=== PATIENT | female | born 2000 | race Caucasian/White ===

== ENCOUNTER 2023-04-30 08:39 | Emergency (ER) | payer MEDICAID, SELFPAY ==
[2023-04-30 08:43] VITALS: BP 112/67; PULSE 80; RESP 17; TEMP 36.8; O2SAT 100; BMI 25.0
[2023-04-30 09:15] VITALS: BP 120/59; PULSE 71; RESP 18; O2SAT 100
--- NOTE | 2023-04-30 09:40 | US_ITS ---
WS: [id number] ULTRASOUND OB LIMITED TECHNIQUE: Limited ultrasound examination of the fetus. LMP January 14, 2023 CLINICAL INFORMATION: RLQ pain pt reports 16 weeks gestation COMPARISON: None. FINDINGS: Closed cervix measures 3.4 cm Single interuterine gestation. Placental location is anterior. Placenta grade: 0. heart rate 153 BPM. Anatomy: BDP: 2.8 cm = 15w1d HC: 10.8 cm = 15w1d AC: 8.9 cm = 15w1d FEMUR LENGTH: 1.8 cm = 15w1d Estimated weight: 117 g; 0 lbs. 4 oz. EGA by ultrasound: 15w1d THANIA by ultrasound: 10/21/2023 RIGHT lower quadrant appears normal. US/US OB limited [id number] IMPRESSION: 1. Single intrauterine gestation with cardiac activity. 2. Visualized RIGHT lower quadrant appears normal. EGA by ultrasound: 15w1d THANIA by ultrasound: 10/21/2023
[2023-04-30 09:59] VITALS: BP 120/59; RESP 18; O2SAT 100
--- NOTE | 2023-04-30 10:09 | ED_ITS ---
HPI - General: Chief complaint: OB/Uterine Contractions Stated complaint: 16 weeks , LRQ abd pain Time Seen by Provider: 04/30/23 08:42 History of Present Illness: Patient is in today for right lower abdominal pain. Patient states that she started having right lower quadrant abdominal pain this morning that was not terrible, but after she peed the pain became severe and hard to walk with. Patient denies that her urine was discolored. She denies hematuria. She denies burning with urination. She denies any fever, chills. She states that she is approximately 16 weeks based on her last menstrual period. She states that she did have an ultrasound approximately 2 weeks ago because she was admitted into the hospital in [place] for abdominal pain and vomiting blood. She reports that she does have 2 uterus is in the baby is positioned in the left side uterus. Patient states that her first OB appointment is this coming next week. Associated symptoms: Reports abdominal pain and nausea; Deny dysuria or vomiting Review of Systems Const: Denies: fever(s), chills or body aches Card: Denies: chest pain or palpitations Resp: Denies: dyspnea, productive cough or non-productive cough GI: Reports: abdominal pain and nausea; Denies: vomiting, diarrhea or constipation : Denies: flank pain, difficulty voiding, dysuria, urinary frequency, urinary urgency or urinary hesitancy Physical Exam Const: COMMON NORMALS: no acute distress, patient oriented x3, healthy appearing, alert and well nourished Neck/C-Spine: COMMON NORMALS: no JVD Resp: COMMON NORMALS: normal respiratory effort, No use of accessory muscles and clear to auscultation bilaterally AUSCULTATION: clear to auscultation bilaterally Cardio: COMMON NORMALS: no JVD, regular rate, regular rhythm, S1 normal heart sound present and S2 normal heart sound present RATE: regular rate RHYTHM: regular rhythm HEART SOUNDS: S1 normal heart sound present and S2 normal heart sound present GI: COMMON NORMALS: Soft to palpation INSPECTION: Yes normal to inspection AUSCULTATION: Yes normoactive bowel sounds PALPATION: Yes Soft to palpation and Yes Tenderness to palpation present (GI) (Patient has some generalized lower abdominal tenderness) Neuro: COMMON NORMALS: patient oriented x3 SENSORIUM/ORIENTATION: Yes alert Course Vital Signs: Vital signs: Vital Signs Temperature 98.2 F 04/30/23 08:43 Pulse Rate 71 04/30/23 09:15 Respiratory Rate 18 04/30/23 09:59 Blood Pressure 120/59 04/30/23 09:59 Pulse Oximetry 100 04/30/23 09:59 Oxygen Delivery Me thod Room Air 04/30/23 09:15 MDM - OB/Uterine Contractions Medical Decision Making Patient is in today for right lower quadrant abdominal pain and states she is approximately 16 weeks gestation. She is a 4 for para 1. She reports her upcoming OB first appointment is next . Differentials include ectopic , threatened , appendicitis, pelvic pain, round ligament pain Patient is in no acute distress and afebrile. Labs-White blood cell count is normal electrolytes are normal. UA dip shows bacteria, trace mucus, positive red blood cells. Preliminary read?pelvic ultrasound shows gestation 15 weeks 1 day fetus. Bicornuate uterus. I will discharge patient home treat to cover urinary tract infection. Encourage patient to stay well-hydrated. Keep upcoming appointment with RESTAURANT EXPEDITOR. Return to the ER as needed for any new or worsening symptoms Lab Data 04/30/23 10:12 04/30/23 10:12 Radiology Impressions Obstetrics Ultrasound 04/30/23 09:40 IMPRESSION: 1. Single intrauterine gestation with cardiac activity. 2. Visualized RIGHT lower quadrant appears normal. EGA by ultrasound: 15w1d THANIA by ultrasound: 10/21/2023 Laboratory Results WBC 7.0 10^3/uL (4.0-10.0) 04/30/23 10:12 RBC 4.13 10^6/uL (4.1-5.3) 04/30/23 10:12 Hgb 11.5 g/dL (11.5-15.3) 04/30/23 10:12 Hct 36.0 % (37.0-47.0) L 04/30/23 10:12 MCV 87.2 fl (81-99) 04/30/23 10:12 MCH 27.8 pg (28.0-34.0) L 04/30/23 10:12 MCHC 31.9 g/dL (30.0-36.0) 04/30/23 10:12 RDW 13.5 % (12.1-15.1) 04/30/23 10:12 Plt Count 257 10^3/cmm (130-400) 04/30/23 10:12 MPV 10.2 fL (7.4-10.4) 04/30/23 10:12 Neut % (Auto) 68.7 % 04/30/23 10:12 Lymph % (Auto) 26.8 % 04/30/23 10:12 [place] % (Auto) 2.9 % 04/30/23 10:12 Eos % (Auto) 1.0 % 04/30/23 10:12 Baso % (Auto) 0.3 % 04/30/23 10:12 Neut # (Auto) 4.81 10^3/uL (1.8-7.7) 04/30/23 10:12 Lymph # (Auto) 1.9 10^3/uL (0.8-4.8) 04/30/23 10:12 [place] # (Auto) 0.2 10^3/uL (0.2-0.9) 04/30/23 10:12 Eos # (Auto) 0.1 10^3/uL (0.0-0.8) 04/30/23 10:12 Baso # (Auto) 0.0 10^3/uL (0.0-0.1) 04/30/23 10:12 Nucleated RBC % (auto) 0 % 04/30/23 10:12 Nucleated RBCs # 0.0 /100WBC 04/30/23 10:12 Sodium 137 mmol/L (136-145) 04/30/23 10:12 Potassium 4.1 mmol/L (3.5-5.1) 04/30/23 10:12 Chloride 105 mmol/L (98-107) 04/30/23 10:12 Carbon Dioxide 22 mmol/L (22-29) 04/30/23 10:12 Anion Gap 14.1 (5-19) 04/30/23 10:12 BUN 6 mg/dL (6-20) 04/30/23 10:12 Creatinine 0.5 mg/dL (0.5-0.9) 04/30/23 10:12 GFR Calculation 151.6 mL/min (90-130) H 04/30/23 10:12 Glucose 81 mg/dL (65-115) 04/30/23 10:12 Calculated Osmolality 281 mOsm/kg (285-295) L 07/06/23 10:12 Calcium 8.8 mg/dL (8.5-10.5) 04/30/23 10:12 Total Bilirubin 0.2 mg/dL (0.15-1.2) 04/30/23 10:12 AST 10 U/L (0-32) 04/30/23 10:12 ALT 8 U/L (0-33) 04/30/23 10:12 Alkaline Phosphatase 67 U/L (35-105) 04/30/23 10:12 Total Protein 7.1 g/dL (6.6-8.7) 04/30/23 10:12 Albumin 3.7 g/dL (3.5-5.2) 04/30/23 10:12 Globulin 3.4 g/dL (1.3-4.6) 04/30/23 10:12 Urine Color Yellow (Yellow) 04/30/23 09:42 Urine Appearance Cloudy (CLEAR) A 04/30/23 09:42 Urine pH 7 (5-7) 04/30/23 09:42 Ur Specific [place] 1.015 (1.005-1.030) 04/30/23 09:42 Urine Protein Neg (Negative) 04/30/23 09:42 Urine Glucose (UA) Norm (Normal) 04/30/23 09:42 Urine Ketones Negative (Negative) 04/30/23 09:42 Urine Blood Neg (Negative) 04/30/23 09:42 Urine Nitrate Negative (Negative) 04/30/23 09:42 Urine Bilirubin Neg (Negative) 04/30/23 09:42 Urine Urobilinogen Norm mg/dL (Negative) 04/30/23 09:42 Ur Leukocyte Esterase Negative (Negative) 04/30/23 09:42 Urine RBC 0-4 /hpf (0-2) H 04/30/23 09:42 Urine WBC 0-4 /hpf (0-5) H 04/30/23 09:42 Ur Squamous Epith Cells 25-40 /hpf (0-5) H 04/30/23 09:42 Amorphous Sediment 1+ /hpf 04/30/23 09:42 Urine Bacteria 1+ /hpf (NONE) H 04/30/23 09:42 Urine Mucus Trace /hpf 04/30/23 09:42 Discharge Plan Discharge Patient Disposition: Home Clinical Impression: Abdominal pain, UTI (urinary tract infection) in in second trimester Condition: Stable Prescriptions: New nitrofurantoin macrocrystal 100 mg capsule 100 mg PO BID 5 Days Qty: 10 0RF Rx Instructions: must administer with a meal/food Discharge Orders: Discharge ED (Routine); Ordered 04/30/23 Ordered By: Bekah Harris Discharge Diet: Usual diet Discharge Activity: Increase activity as tolerated Patient Instructions: Urinary Tract Infection in (ED) Activity Restrictions/Additional Instructions: Your lab work was essentially unremarkable with no indication of major systemic infection. You did have some bacteria and blood in your urine which we will treat with an antibiotic to cover a urinary tract infection. While an appendicitis cannot be 100% ruled out without a CT scan it is of less likely cause of your pain given that you have no fever, your white blood cell count was normal. Make sure that you are staying well-hydrated at home and take the antibiotic as prescribed. Keep your follow-up appointment with your RESTAURANT EXPEDITOR next week. Return to the emergency department for any new or worsening symptoms. Coding Level of Care Code ED Section Forest Fire Warden for Jakob Wilkinson
[2023-04-30 10:18] LABS: Basophils % 0.3 %; Eosinophils # 0.1 10^3/uL (0.0-0.8); Hemoglobin 11.5 g/dL (11.5-15.3); Lymphocytes # 1.9 10^3/uL (0.8-4.8); Lymphocytes % 26.8 %; Mean Corpuscular HGB Conc 31.9 g/dL (30.0-36.0); Mean Corpuscular Hemoglobin 27.8 pg (28.0-34.0); Mean Corpuscular Volume 87.2 fl (81-99); Mean Platelet Volume 10.2 fL (7.4-10.4); Monocytes # 0.2 10^3/uL (0.2-0.9); Monocytes % 2.9 %; Neutrophils # 4.81 10^3/uL (1.8-7.7); Neutrophils % 68.7 %; Nucleated Red Blood Cells % 0 %; Platelet Count 257 10^3/cmm (130-400); Red Blood Count 4.13 10^6/uL (4.1-5.3); Red Cell Distribution Width 13.5 % (12.1-15.1)
[2023-04-30 10:30] LABS: Add Urine Microscopic? YES; Bilirubin Urine Neg (Negative); Blood Urine Neg (Negative); Glucose Urine UA Norm (Normal); Ketones Urine Negative (Negative); Leukocyte Esterase Urine Negative (Negative); Nitrate Urine Negative (Negative); Protein Urine Neg (Negative); Specific Gravity, Urine 1.015 (1.005-1.030); Urine Appearance Cloudy (CLEAR); Urine Color Yellow (Yellow); Urobilinogen Urine Norm (Negative); pH Urine 7 (5-7)
[2023-04-30 10:41] LABS: RBC Urine 0-4 /hpf (0-2); WBC Urine 0-4 /hpf (0-5)
[2023-04-30 10:42] LABS: Add Urine Culture? No; Amorphous Sediment Urine 1+ /hpf; Bacteria Urine 1+ /hpf; Mucus Urine TRACE /hpf; Squamous Epithelial Cell Urine 25-40 /hpf (0-5)
[2023-04-30 10:43] LABS: Alanine Aminotransferase 8 U/L (0-33); Albumin Level 3.7 g/dL (3.5-5.2); Alkaline Phosphatase 67 U/L (35-105); Anion Gap 14.1 (5-19); Aspartate Amino Transferase 10 U/L (0-32); Blood Urea Nitrogen 6 mg/dL (6-20); Calcium 8.8 mg/dL (8.5-10.5); Carbon Dioxide 22 mmol/L (22-29); Chloride 105 mmol/L (98-107); Globulin 3.4 g/dL (1.3-4.6); Glomerular Filtration Rate 151.6 mL/min (90-130); Glucose 81 mg/dL (65-115); Osmolality Calculated 281 mOsm/kg (285-295); Potassium 4.1 mmol/L (3.5-5.1); Sodium 137 mmol/L (136-145); Total Bilirubin 0.2 mg/dL (0.15-1.2); Total Protein 7.1 g/dL (6.6-8.7)
== END 2023-04-30 11:29 | disposition home or self-care (01) ==
PROVIDERS: Emergency Provider Nurse Practitioner Family
DX: O23.42 Unspecified infection of urinary tract in pregnancy, second trimester (principal); N39.0 Urinary tract infection, site not specified; Z3A.16 16 weeks gestation of pregnancy
CPT/HCPCS: 76815; 80053; 81001; 85025; 99284

== ENCOUNTER → 2023-05-05 15:00 | Outpatient (BNVA) | payer MEDICAID, SELFPAY | PROVIDERS: Visit Provider Obstetrics & Gynecology | DX: Z34.90 Encounter for supervision of normal pregnancy, unspecified, unspecified trimester (principal); Z3A.00 Weeks of gestation of pregnancy not specified | CPT/HCPCS: 80307; 84315; 85027; 86592; 86762; 86803; 86850; 86900; 87086; 87340; 87806 ==

== ENCOUNTER → 2023-05-06 02:15 | Outpatient (BNVA) | payer MEDICAID, SELFPAY | PROVIDERS: Visit Provider Obstetrics & Gynecology | DX: Z34.90 Encounter for supervision of normal pregnancy, unspecified, unspecified trimester (principal); Z3A.00 Weeks of gestation of pregnancy not specified | CPT/HCPCS: 87522 ==

== ENCOUNTER → 2023-06-02 10:16 | Outpatient (BNVA) | payer MEDICAID, SELFPAY | PROVIDERS: Visit Provider Obstetrics & Gynecology | DX: Z36.87 Encounter for antenatal screening for uncertain dates (principal) | CPT/HCPCS: 76805 ==

== ENCOUNTER → 2023-06-03 10:42 | Outpatient (BNVA) | payer MEDICAID, SELFPAY | PROVIDERS: Visit Provider Obstetrics & Gynecology | DX: Z34.80 Encounter for supervision of other normal pregnancy, unspecified trimester (principal); Z98.891 History of uterine scar from previous surgery | CPT/HCPCS: 81000 ==

== ENCOUNTER → 2023-06-27 13:41 | Outpatient (BNVA) | payer MEDICAID, SELFPAY | PROVIDERS: Visit Provider Registered Nurse Neonatal Intensive Care | DX: R05.9 Cough, unspecified (principal); J40 Bronchitis, not specified as acute or chronic | CPT/HCPCS: 87426 ==

== ENCOUNTER → 2023-06-30 10:35 | Outpatient (BNVA) | payer MEDICAID, SELFPAY | PROVIDERS: Visit Provider Nurse Practitioner Women's Health | DX: Z34.80 Encounter for supervision of other normal pregnancy, unspecified trimester (principal); A53.0 Latent syphilis, unspecified as early or late | CPT/HCPCS: 81000 ==

== ENCOUNTER → 2023-07-01 13:38 | Outpatient (BNVA) | payer MEDICAID, SELFPAY | PROVIDERS: Visit Provider Nurse Practitioner Women's Health | DX: A53.0 Latent syphilis, unspecified as early or late (principal); Z34.80 Encounter for supervision of other normal pregnancy, unspecified trimester | CPT/HCPCS: 84443; 86592; 86780 ==

== ENCOUNTER 2023-07-08 15:02 | Outpatient (CLI) | payer MEDICAID, SELFPAY ==
[2023-07-08 15:02] VITALS: BMI 32.9
== END 2023-07-08 15:44 | disposition home or self-care (01) ==
LOC: OPOB 15:08 → OBGYN 15:08
PROVIDERS: Visit Provider Obstetrics & Gynecology
DX: O26.899 Other specified pregnancy related conditions, unspecified trimester (principal); Z3A.00 Weeks of gestation of pregnancy not specified
CPT/HCPCS: 96372; 99211; J0702

== ENCOUNTER 2023-07-09 15:36 | Outpatient (CLI) | payer MEDICAID, SELFPAY ==
[2023-07-09] MEDS: penicillin g (L-A) 1,200,000 unit/2 mL Syr 2400000 UNIT IM (16:27)
[2023-07-09 16:36] VITALS: BMI 32.9
== END 2023-07-09 16:30 | disposition home or self-care (01) ==
LOC: OPOB 15:37 → OBGYN 15:38
PROVIDERS: Visit Provider Obstetrics & Gynecology
DX: O26.899 Other specified pregnancy related conditions, unspecified trimester (principal); Z3A.00 Weeks of gestation of pregnancy not specified
CPT/HCPCS: 96372; J0561

== ENCOUNTER → 2023-07-14 16:20 | Outpatient (BNVA) | payer MEDICAID, SELFPAY | PROVIDERS: Visit Provider Obstetrics & Gynecology | DX: Z20.2 Contact with and (suspected) exposure to infections with a predominantly sexual mode of transmission (principal); Z34.80 Encounter for supervision of other normal pregnancy, unspecified trimester | CPT/HCPCS: 81000; 87491; 87591 ==

== ENCOUNTER → 2023-07-30 15:45 | Outpatient (BNVA) | payer MEDICAID, SELFPAY | PROVIDERS: Visit Provider Obstetrics & Gynecology | DX: Z34.80 Encounter for supervision of other normal pregnancy, unspecified trimester (principal) | CPT/HCPCS: 81000; 82950; 85025 ==

== ENCOUNTER → 2023-08-12 08:51 | Outpatient (BNVA) | payer MEDICAID, SELFPAY | PROVIDERS: Visit Provider Obstetrics & Gynecology | DX: Z34.80 Encounter for supervision of other normal pregnancy, unspecified trimester (principal) | CPT/HCPCS: 81000 ==

== ENCOUNTER → 2023-08-25 11:50 | Outpatient (BNVA) | payer MEDICAID, SELFPAY | PROVIDERS: Visit Provider Obstetrics & Gynecology | DX: Z34.80 Encounter for supervision of other normal pregnancy, unspecified trimester (principal) | CPT/HCPCS: 81000 ==

== ENCOUNTER → 2023-09-09 10:28 | Outpatient (BNVA) | payer MEDICAID, SELFPAY | PROVIDERS: Visit Provider Nurse Practitioner Women's Health | DX: Z34.80 Encounter for supervision of other normal pregnancy, unspecified trimester (principal) | CPT/HCPCS: 81000; 86592 ==

== ENCOUNTER → 2023-09-23 12:42 | Outpatient (BNVA) | payer MEDICAID, SELFPAY | PROVIDERS: Visit Provider Obstetrics & Gynecology | DX: Z34.80 Encounter for supervision of other normal pregnancy, unspecified trimester (principal) | CPT/HCPCS: 81000; 87081 ==

== ENCOUNTER → 2023-09-30 10:25 | Outpatient (BNVA) | payer MEDICAID, SELFPAY | PROVIDERS: Visit Provider Obstetrics & Gynecology | DX: Z34.80 Encounter for supervision of other normal pregnancy, unspecified trimester (principal) | CPT/HCPCS: 81000 ==

== ENCOUNTER 2023-10-01 15:05 | Outpatient (CLI) | payer MEDICAID, SELFPAY ==
[2023-10-01 15:05] VITALS: BMI 36.6
[2023-10-01 15:52] VITALS: BP 122/73; PULSE 90
[2023-10-01 16:12] VITALS: BP 126/63; PULSE 86
[2023-10-01 16:32] VITALS: BP 123/64; PULSE 94
[2023-10-01 16:41] LABS: Glucose Urine UA Norm (Normal); Ketones Urine 2+ (Negative); Protein Urine Neg (Negative); Specific Gravity, Urine 1.015 (1.005-1.030); Urine Appearance Hazy (CLEAR); Urine Color Yellow (Yellow); pH Urine 6 (5-7)
[2023-10-01 16:42] LABS: Bilirubin Urine Neg (Negative); Blood Urine Neg (Negative); Leukocyte Esterase Urine Trace (Negative); Nitrate Urine Negative (Negative); Urobilinogen Urine Norm (Negative)
[2023-10-01 16:44] LABS: Add Urine Culture? No; Bacteria Urine TRACE /hpf; Mucus Urine 2+ /hpf; RBC Urine 0-4 /hpf (0-2); WBC Urine 0-4 /hpf (0-5)
[2023-10-01 16:52] VITALS: BP 129/60; PULSE 99
[2023-10-01 17:06] VITALS: BP 129/60; PULSE 99; RESP 16; TEMP 36.9
== END 2023-10-01 17:00 | disposition home or self-care (01) ==
LOC: OPOB 15:19 → OBGYN 15:20
PROVIDERS: Absent Provider Obstetrics & Gynecology; Visit Provider Obstetrics & Gynecology
DX: O26.899 Other specified pregnancy related conditions, unspecified trimester (principal); Z3A.00 Weeks of gestation of pregnancy not specified; R10.9 Unspecified abdominal pain
CPT/HCPCS: 59025; 81001; 99211

== ENCOUNTER → 2023-10-07 08:55 | Day surgery (SDC) | payer MEDICAID, SELFPAY ==
--- NOTE | 2023-10-07 09:11 | ANES.PREANE2 ---
Pre-Anesthetic Assessment Height/Weight: Height 1.65 m Operation Date: 10/14/23 12:20 Proposed Procedures p Repeat section 92710,O34.219(Not Applicable) - Alejandro Buchanan MD Familial anesthetic complications: none Social Tobacco and No alcohol Exam alert, oriented x 3, clear to auscultation bilaterally and regular rate & rhythm Airway Mallampati: Class II Dentition: chipped bicornuate uterus Metabolic Morbid Obesity Anesthetic Plan ASA status: 2 Anesthesia: Regional (specify below) (spinal) Risk of > 500 ml blood loss (7ml/kg in children): Yes, adequate IV access and fluids planned Medications/Allergies Home Medications Medication Instructions Recorded Confirmed Last Taken Type ondansetron HCl 4 mg tablet 4 mg PO Q8H PRN nausea and 05/05/23 10/07/23 Unknown Rx vomiting #30 tabs vitamin with calcium 1 tab PO DAILY #30 tabs 05/05/23 10/07/23 Unknown Rx no.72-iron 27 mg-folic acid 1 mg tablet ( Vitamins Plus Low Iron) metoclopramide HCl 10 mg tablet 10 mg PO Q6H PRN nausea and 05/15/23 10/07/23 Unknown Rx (Reglan) vomiting #30 tabs famotidine 40 mg tablet 40 mg PO BID #60 tabs 06/03/23 10/07/23 Unknown Rx albuterol sulfate 90 mcg/actuation 2 puff inhalation Q6H PRN 06/27/23 10/07/23 Unknown Rx aerosol inhaler (Ventolin HFA) shortness of breath or wheezing #8.5 grams azithromycin 250 mg tablet See Rx Instructions PO .COMPLEX #6 06/27/23 10/07/23 Unknown Rx tabs penicillin G benzathine 1,200,000 1.2 mmu (2 mL) IM ONCE #20 mL 07/08/23 10/07/23 Unknown Rx unit/2 mL intramuscular syringe (Bicillin L-A) ondansetron HCl 4 mg tablet 4 mg PO Q8H PRN nausea and 08/25/23 10/07/23 Unknown Rx vomiting #20 tabs Allergies Allergy/AdvReac Type Severity Reaction Status Date / Time diphenhydramine Allergy ADR-Cramping Verified 10/07/23 08:16 [From Benadryl] of the Muscles benodryl Allergy restless Uncoded 10/07/23 08:16 leg PFSH Anesthesia Family History Denies family history of Colon cancer Ovarian cancer Diabetes Heart disease Hyperlipidemia Breast cancer Hypertension Uterine cancer Thyroid disease Stroke Data Anesthesia Cardiac Studies: No Data to Display
--- NOTE | 2023-10-14 10:16 | ANES.PAUD2 ---
Pre-Anesthetic Update Pre-Anesthetic Assessment: Date of Surgery/Procedure: 10/14/23 Proposed Procedure: Operation Date: 10/14/23 12:20 Proposed Procedures p Repeat section 11317,O34.219(Not Applicable) - Alejandro Buchanan MD Any changes to Pre-Anesthetic Assessment?: No Exam: Pre-Anes Outpt Exam: alert, oriented x 3, clear to auscultation bilaterally and regular rate & rhythm Additional Exam Findings (including area of procedure): Repeat C/S, chipped teeth Cardiac Studies: No Data to Display
--- NOTE | 2023-10-14 13:39 | ANE.PACU2 ---
Inpatient post-anesthesia follow up: Airway intact: Yes Vital signs: Temperature Pulse Rate Respiratory Rate Blood Pressure Pulse Oximetry Oxygen Delivery Me thod Oxygen Flow Rate Fraction of Inspir ed Oxygen Hydration adequate: Yes Nausea and vomiting: No Pain level: 2 Mental status: Baseline
== END ==
PROVIDERS: Visit Provider Obstetrics & Gynecology
DX: Z01.818 Encounter for other preprocedural examination (principal)
CPT/HCPCS: 81000

== ENCOUNTER 2023-10-14 09:49 | Inpatient (IN) | payer MEDICAID, SELFPAY ==
[2023-10-01 15:35] VITALS: BP 126/70; PULSE 114; RESP 16; TEMP 36.9
[2023-10-14] VITALS (28 sets, daily range): BP systolic 97–138; BP diastolic 51–80; PULSE 69–92; RESP 15–17; TEMP 36.3–36.8; O2SAT 98–100
[2023-10-14 10:56] LABS: Basophils % 0.3 %; Eosinophils # 0.1 10^3/uL (0.0-0.8); Eosinophils % 0.8 %; Hematocrit 31.2 % (36-47); Lymphocytes # 2.1 10^3/uL (0.8-4.8); Lymphocytes % 21.6 %; Mean Corpuscular HGB Conc 32.7 g/dL (30-55); Mean Corpuscular Hemoglobin 28.3 pg (27-33); Mean Corpuscular Volume 86.4 fl (85-98); Mean Platelet Volume 10.8 fL (7.4-10.4); Monocytes # 0.4 10^3/uL (0.2-0.9); Monocytes % 4.2 %; Neutrophils # 7.13 10^3/uL (1.8-7.7); Neutrophils % 72.7 %; Nucleated Red Blood Cells % 0 %; Platelet Count 275 10^3/cmm (157-399); Red Blood Count 3.61 10^6/uL (3.85-5.65); Red Cell Distribution Width 14.6 % (12.1-15.1); White Blood Count 9.81 10^3/uL (3.29-11.43)
[2023-10-14] MEDS: lactated ringers 1,000 ML 999 ML IV (10:59)
[2023-10-14] MEDS: ceFAZolin 2,000 MG in sodium chloride 0.9% (plus) 50 ML 100 MG IV (11:59)
[2023-10-14] MEDS: famotidine 20 mg/2 mL INJ IVP (12:00)
[2023-10-14] MEDS: metoclopramide 5 mg/mL SDV 2 mL 10 MG IVP (12:00)
[2023-10-14] MEDS: citric acid-sodium citrate 30 mL UDC PO (12:00)
--- NOTE | 2023-10-14 12:03 | PC.NURSE ---
on floor now
[2023-10-14 12:05] LABS: Amphetamines Screen Urine Negative (Negative); Barbiturates Screen Urine Negative (Negative); Benzodiazepines Screen Urine Negative (Negative); Cocaine Screen Urine Negative (Negative); Opiate Screen Urine Negative (Negative); PCP Screen Urine Negative (Negative); THC Screen Urine Positive (Negative)
--- NOTE | 2023-10-14 12:07 | PM.OBGYHP ---
Providers/Chief Complaint Admitting Physician: Alejandro Buchanan MD Primary STAVE BOLT EQUALIZER: Alejandro Buchanan MD Chief Complaint: repeat section HPI STAVE BOLT EQUALIZER History of Present Illness Shad Khan is a 22 year old female at 39 weeks gestation h/o previous admitted for schedule repeat h/o syphilis, dxd on screening labs, treated with two doses of Bicillin Present Details : 4 Para: 1 Labs Rubella: Immune RPR: Unknown GBS: Negative Medications/Allergies Home Medications Medication Instructions Recorded Confirmed Last Taken Type ondansetron HCl 4 mg tablet 4 mg PO Q8H PRN nausea and 05/05/23 10/14/23 Unknown Rx vomiting #30 tabs vitamin with calcium 1 tab PO DAILY #30 tabs 05/05/23 10/14/23 Unknown Rx no.72-iron 27 mg-folic acid 1 mg tablet ( Vitamins Plus Low Iron) metoclopramide HCl 10 mg tablet 10 mg PO Q6H PRN nausea and 05/15/23 10/14/23 Unknown Rx (Reglan) vomiting #30 tabs famotidine 40 mg tablet 40 mg PO BID #60 tabs 06/03/23 10/14/23 Unknown Rx albuterol sulfate 90 mcg/actuation 2 puff inhalation Q6H PRN 06/27/23 10/14/23 Unknown Rx aerosol inhaler (Ventolin HFA) shortness of breath or wheezing #8.5 grams azithromycin 250 mg tablet See Rx Instructions PO .COMPLEX #6 06/27/23 10/14/23 Unknown Rx tabs penicillin G benzathine 1,200,000 1.2 mmu (2 mL) IM ONCE #20 mL 07/08/23 10/14/23 Unknown Rx unit/2 mL intramuscular syringe (Bicillin L-A) ondansetron HCl 4 mg tablet 4 mg PO Q8H PRN nausea and 08/25/23 10/14/23 Unknown Rx vomiting #20 tabs Allergies Allergy/AdvReac Type Severity Reaction Status Date / Time diphenhydramine Allergy ADR-Cramping Verified 10/14/23 08:29 [From Benadryl] of the Muscles benodryl Allergy restless Uncoded 10/14/23 08:29 leg PFSH STAVE BOLT EQUALIZER PFSH: Family History Denies family history of Colon cancer Ovarian cancer Diabetes Heart disease Hyperlipidemia Breast cancer Hypertension Uterine cancer Thyroid disease Stroke History History History 6 Term 1 0 Miscarriages/Ectopic 4 Living Children 1 Care THANIA Calculator Estimated Delivery Date Method Current WG Current Estimate 10/21/23 LMP (Certain) 39w 0d Vitals/I&O/Wt Last Vital Signs Temp 98.4 F 10/01/23 15:35 Pulse 77 10/14/23 10:54 Resp 16 10/01/23 15:35 BP 124/74 10/14/23 10:54 O2 Del Method Room Air 10/14/23 09:50 Weight last 48 hrs Weight 218 lb Physical Exam Const: COMMON NORMALS: no acute distress, patient oriented x3, healthy appearing and alert Resp: COMMON NORMALS: normal respiratory effort and clear to auscultation bilaterally Cardio: COMMON NORMALS: regular rate and regular rhythm GI: COMMON NORMALS: Normal to inspection, nondistended, normoactive bowel sounds present, Soft to palpation and non-tender Data 10/14/23 10:30 Results Labs OB ([facility]): Obstetrics US 04/30/23 Blood Type O Positive 05/05/23 Antibody Screen Negative 05/05/23 Hct 31.2 % (36-47) L 10/14/23 Hgb 10.20 g/dL (11.27-16.99) L 10/14/23 Rho(D) Type Positive 05/05/23 Plt Count 275 10^3/cmm (157-399) 10/14/23 Hep Bs Antigen Non-reactive (Nonreactive) 05/05/23 Hepatitis C Antibody Reactive (Nonreactive) H 05/05/23 Rubella IgG Antibody 74.7 IU/mL (0.0-10.0) H 05/05/23 RPR Reactive (Nonreactive) H 05/05/23 T.pallidum Ab (FTA-ABS) Reactive (NON-REACTIVE) A 07/01/23 HIV 1&2 Ab & HIV 1 Ag Non-reactive (Non-Reactiv) 05/05/23 TSH 0.92 uIU/mL (0.27-4.20) 07/01/23 C.trachomatis RNA (TMA) Not detected (NOT DETECTED) 07/14/23 N.gonorrhoeae RNA (TMA) Not detected (NOT DETECTED) 07/14/23 T. vaginalis Amp RNA Not detected (NOT DETECTED) 07/14/23 Chlamydia/GC Comment See note 07/14/23 Gest Glucose Tolerance 103 mg/dL (70-139) 07/30/23 Urine Opiates Screen Negative ng/mL (Negative) 10/14/23 Ur Barbiturates Screen Negative ng/mL (Negative) 10/14/23 Ur Phencyclidine Scrn Negative ng/mL (Negative) 10/14/23 Ur Amphetamines Screen Negative ng/mL (Negative) 10/14/23 U Benzodiazepines Scrn Negative ng/mL (Negative) 10/14/23 Urine Cocaine Screen Negative ng/mL (Negative) 10/14/23 U Marijuana (THC) Screen Positive ng/mL (Negative) H 10/14/23 Micro Urine Specimen 05/05/23 A&P Assessment and plan (1) Supervision of other normal : (2) History of delivery: (3) Antepartum syphilis: Attestations Medical Necessity Statement*: patient at 39 weeks, admitted for repeat at 39 weeks Coding Level of Care Code Acute Code for Chg Fwd Diagnoses Supervision of other normal Z34.80 History of delivery Z98.891 Antepartum syphilis O98.119 Time Spent (min) 20
--- NOTE | 2023-10-14 13:50 | PM.OP ---
Operative Report Date of procedure: October 14, 2023 Pre-op diagnosis: 39 weeks gestation Previous x one For repeat Post-op diagnosis: same Post-op findings: Vigorous male infant Normal placenta and cord Normal uterus, tubes, and ovaries Procedure done: Repeat low-transverse Implants: none Specimens removed/disposition: placenta and cord, discarded Surgeon: Alejandro Buchanan MD Anesthesia: Spinal Estimated blood loss (mL): 700 Complications: none Condition: stable Disposition: floor Brief History: 22 y.o. EDC October 21, 2023 at 39 w h/o previous today for scheduled repeat Procedure: Indications: Patient with previous , scheduled for repeat . Informed consent signed. Patient was taken to the operating room, placed supine in the left lateral tilt position. Spinal anesthesia and a Madison catheter were already placed. The abdomen was prepped and draped in the usual sterile fashion. A Pfannenstiel incision was made over an old scar and carried down through skin and subcutaneous tissue and fascia. The fascial incision was extended laterally with Michelle scissors. The fascia was from the underlying rectus muscles. The rectus muscles were split in the midline. The peritoneum was entered bluntly avoiding underlying organs. A bladder flap was created. A low transverse uterine incision was made and extended laterally bluntly avoiding the uterine vessels. Clear amniotic fluid was seen. The baby was delivered in cephalic presentation atraumatically. The baby was suctioned. The cord was clamped and cut and the baby was handed to an awaiting photovoltaic solar cell designer. Cord blood was obtained. The placenta was manually removed intact. The uterine cavity was bluntly curetted with wet laps. The uterine incision was then closed with a continuous interlocking stitch of O chromic. Adequate hemostasis was seen. No bleeding was seen. The uterine incision was again inspected and found to have good hemostasis. The fascia was then closed with a continuous stitch of O-Vicryl. Additional interrupted stitches of O-Vicryl were used for fascial closure. The subcutaneous tissue was irrigated and inspected for hemostasis. The skin was then reapproximated using Insorb makayla. Postoperative condition stable Disposition to recovery room Estimated blood loss 700 cc, no replacement Sponge, needle, and instrument counts were correct x two There were no complications
[2023-10-14] MEDS: ondansetron 2 mg/ML SDV 2 mL 4 MG IVP ×2 (15:04→21:34)
[2023-10-14] MEDS: docusate sodium 100 mg Capsule PO (18:34)
[2023-10-14] MEDS: HYDROcodone-acetaminophen 5-325 mg Tablet PO (18:34)
[2023-10-14] MEDS: ferrous sulfate EC 325 mg Tablet PO (18:34)
[2023-10-14] MEDS: simethicone 80 mg Chew PO (18:34)
[2023-10-14] MEDS: lanolin oint 7 gm 1 APPLIC TOPICAL (18:34)
[2023-10-14] MEDS: dextrose 5%-lactated ringers 1,000 ML 125 ML IV (18:40)
[2023-10-14] MEDS: ketorolac 30 mg/mL INJ IVP (20:13)
[2023-10-15] MEDS: HYDROcodone-acetaminophen 5-325 mg Tablet PO ×4 (00:23→20:45)
[2023-10-15 01:29] LABS: Hematocrit 24.3 % (36-47); Mean Corpuscular HGB Conc 32.9 g/dL (30-55); Mean Corpuscular Hemoglobin 28.9 pg (27-33); Mean Corpuscular Volume 87.7 fl (85-98); Mean Platelet Volume 10.4 fL (7.4-10.4); Platelet Count 188 10^3/cmm (157-399); Red Blood Count 2.77 10^6/uL (3.85-5.65); Red Cell Distribution Width 14.4 % (12.1-15.1); White Blood Count 10.33 10^3/uL (3.29-11.43)
[2023-10-15] MEDS: ketorolac 30 mg/mL INJ IVP (02:00)
[2023-10-15] MEDS: hyDROXYzine 25 mg Capsule 50 MG PO ×2 (03:06→11:15)
[2023-10-15] MEDS: prenatal vitamin Capsule 1 CAP PO (09:28)
[2023-10-15] MEDS: ferrous sulfate EC 325 mg Tablet PO (09:28)
[2023-10-15] MEDS: docusate sodium 100 mg Capsule PO (09:28)
[2023-10-15 09:40] VITALS: BP 128/79; PULSE 85; RESP 17; TEMP 36.7
--- NOTE | 2023-10-15 11:33 | PC.NURSE ---
pt has called [facility] to request when she got Penicillin shot for syphilis, 1st dose 07/17/23, 2nd dose 07/24/23 per [facility]
[2023-10-15 12:50] LABS: Rapid Plasma Reagin Syphilis Reactive (Nonreactive)
[2023-10-15 12:53] LABS: Rapid Plasma Reagin Syphilis Reactive (Nonreactive)
--- NOTE | 2023-10-15 13:05 | PM.OBGYPN ---
PRODUCT MANAGEMENT CONSULTANT Subjective Subjective: Interval history: c/o mild incisional pain no bleeding, nausea, vomiting tolerating PO well caring for infant without any difficulties Labor: Station: -4 Amniotic Membrane Status: Intact Monitor Mode: External Contraction Pattern: Absent Vitals/I&O/Wt Last Vital Signs Temp 97.2 F L 10/16/23 11:07 Pulse 63 10/16/23 11:07 Resp 18 10/16/23 10:00 BP 119/80 10/16/23 11:07 Pulse Ox 99 10/16/23 11:06 O2 Del Method Room Air 10/16/23 10:00 Physical Exam Narrative: afebrile, VS normal comfortable, awake, alert Lungs: clear Cor: RRR Abd: soft, nondistended, nontender fundus firm wound clean and dry Ext: normal Urinary Catheter Management: Madison: Cath Placed During This Visit: yes, but has since been removed by the nurse Reason for Continuing Indwelling Catheter: Decision to DC Catheter Urinary Catheter Date of Insertion: 10/14/23 Urinary Catheter Time of Insertion: 12:13 Date Urinary Catheter Removed: 10/15/23 Time Urinary Catheter Discontinued: 04:00 Data 10/15/23 01:10 A&P Assessment and plan (1) History of delivery: POD #1 repeat doing well continue postop care ambulate Attestations Medical Necessity Statement*: patient is POD #1 repeat , continue postop and care Coding Level of Care Code Acute Code for Chg Fwd Diagnoses History of delivery Z98.891 Time Spent (min) 20
--- NOTE | 2023-10-15 14:05 | P.PN_ITS ---
MANAGER PORTABLE Subjective 2 Subjective: Interval history: no c/o except for gas pains eating, voiding, ambulating well no pain, bleeding wants to go home without any difficulties Labor: Station: -4 Amniotic Membrane Status: Intact Monitor Mode: External Contraction Pattern: Absent Vitals/I&O/Wt Last Vital Signs Temp 97.2 F L 10/16/23 11:07 Pulse 63 10/16/23 11:07 Resp 18 10/16/23 10:00 BP 119/80 10/16/23 11:07 Pulse Ox 99 10/16/23 11:06 O2 Del Method Room Air 10/16/23 10:00 Physical Exam 2 Narrative: comfortable afebrile, VS normal Abd: soft, nontender wound clean and dry Ext: normal Urinary Catheter Management: Madison: Cath Placed During This Visit: yes, but has since been removed by the nurse Reason for Continuing Indwelling Catheter: Decision to DC Catheter Urinary Catheter Date of Insertion: 10/14/23 Urinary Catheter Time of Insertion: 12:13 Date Urinary Catheter Removed: 10/15/23 Time Urinary Catheter Discontinued: 04:00 Data 10/15/23 01:10 A&P Assessment and plan (1) History of delivery: POD #2 repeat doing well discharge home today instructions and precautions given call/return if fever, chills, nausea, vomiting, headaches, abdominal pain, bleeding, inability to void, swelling, leg pain; feelings of depression or mood changes; wound redness, swelling, or discharge f/u in 1 week or PRN Attestations 2 Medical Necessity Statement*: patient s/p repeat , discharge home today Coding Level of Care Code Acute Code for Chg Fwd Diagnoses History of delivery Z98.891 Time Spent (min) 20
[2023-10-15 15:59] LABS: Chlamydia Trachomatis RNA TMA NOT DETECTED (NOT DETECTED); Neisseria Gonorrhoeae RNA, TMA NOT DETECTED (NOT DETECTED)
[2023-10-15 17:50] VITALS: BP 130/74; PULSE 93; RESP 17; TEMP 36.7
[2023-10-15] MEDS: simethicone 80 mg Chew PO (21:52)
[2023-10-15 23:07] VITALS: BP 106/56; PULSE 89; RESP 15; TEMP 37.1; O2SAT 97
[2023-10-15] MEDS: acetaminophen 325 mg Tablet 650 MG PO (23:30)
[2023-10-16] MEDS: HYDROcodone-acetaminophen 5-325 mg Tablet PO ×3 (07:45→18:18)
[2023-10-16] MEDS: ferrous sulfate EC 325 mg Tablet PO (09:03)
[2023-10-16] MEDS: docusate sodium 100 mg Capsule PO (09:03)
[2023-10-16] MEDS: ibuprofen 800 mg tablet PO ×2 (09:03→14:19)
[2023-10-16] MEDS: prenatal vitamin Capsule 1 CAP PO (09:03)
[2023-10-16 10:00] VITALS: BP 119/80; PULSE 68; RESP 18; TEMP 36.2; O2SAT 99
[2023-10-16 11:06] VITALS: PULSE 66; TEMP 36.4; O2SAT 99
[2023-10-16 11:07] VITALS: BP 119/80; PULSE 63; TEMP 36.2
--- NOTE | 2023-10-16 17:54 | PM.OBGYDC ---
Discharge Providers [employer] Date of Admission: 10/14/23 09:49 Date of Discharge: 10/16/23 Attending Provider at Admission: Alejandro Buchanan MD Attending Provider at Discharge: Alejandro Buchanan MD Consults: none Primary [employer]: Alejandro Buchanan MD Diagnoses at Discharge Discharge Diagnosis (1) History of delivery: Details from hospital stay: patient underwent repeat no postoperative complications Status: Acute Reason for Visit Reason for Visit: repeat section Brief History: 22 y.o. , EDC October 21, 2023 with history of previous admitted for repeat Hospital Course Hospital Course patient did well postop afebrile able to eat, void, and ambulate without any complications Information Peripartum Data: Infant Delivery Method: complications: none Additional Peripartum Information: dxd with syphilis on ob panel RPR + at 1:2 FTA-Abs + Received two doses of Bicillin Physical Exam Narrative: comfortable afebrile, VS normal Abd: soft, nontender wound clean and dry Ext: normal Urinary Catheter Management: [place]: Cath Placed During This Visit: yes, but has since been removed by the nurse Reason for Continuing Indwelling Catheter: Decision to DC Catheter Urinary Catheter Date of Insertion: 10/14/23 Urinary Catheter Time of Insertion: 12:13 Date Urinary Catheter Removed: 10/15/23 Time Urinary Catheter Discontinued: 04:00 History History History 6 Term 1 0 Miscarriages/Ectopic 4 Living Children 1 Discharge Data Studies Completed and Pending Laboratory Results WBC 10.33 10^3/uL (3.29-11.43) 10/15/23 01:10 RBC 2.77 10^6/uL (3.85-5.65) L 10/15/23 01:10 Hgb 8.00 g/dL (11.27-16.99) L 10/15/23 01:10 Hct 24.3 % (36-47) L 10/15/23 01:10 MCV 87.7 fl (85-98) 10/15/23 01:10 MCH 28.9 pg (27-33) 10/15/23 01:10 MCHC 32.9 g/dL (30-55) 10/15/23 01:10 RDW 14.4 % (12.1-15.1) 10/15/23 01:10 Plt Count 188 10^3/cmm (157-399) D 10/15/23 01:10 MPV 10.4 fL (7.4-10.4) 10/15/23 01:10 Neut % (Auto) 72.7 % 10/14/23 10:30 Lymph % (Auto) 21.6 % 10/14/23 10:30 [place] % (Auto) 4.2 % 10/14/23 10:30 Eos % (Auto) 0.8 % 10/14/23 10:30 Baso % (Auto) 0.3 % 10/14/23 10:30 Neut # (Auto) 7.13 10^3/uL (1.8-7.7) 10/14/23 10:30 Lymph # (Auto) 2.1 10^3/uL (0.8-4.8) 10/14/23 10:30 [place] # (Auto) 0.4 10^3/uL (0.2-0.9) 10/14/23 10:30 Eos # (Auto) 0.1 10^3/uL (0.0-0.8) 10/14/23 10:30 Baso # (Auto) 0.0 10^3/uL (0.0-0.1) 10/14/23 10:30 Nucleated RBC % (auto) 0 % 10/14/23 10:30 Nucleated RBCs # 0.0 /100WBC 10/14/23 10:30 Urine Opiates Screen Negative ng/mL (Negative) 10/14/23 10:30 Ur Barbiturates Screen Negative ng/mL (Negative) 10/14/23 10:30 Ur Phencyclidine Scrn Negative ng/mL (Negative) 10/14/23 10:30 Ur Amphetamines Screen Negative ng/mL (Negative) 10/14/23 10:30 U Benzodiazepines Scrn Negative ng/mL (Negative) 10/14/23 10:30 Urine Cocaine Screen Negative ng/mL (Negative) 10/14/23 10:30 U Marijuana (THC) Screen Positive ng/mL (Negative) H 10/14/23 10:30 RPR Reactive (Nonreactive) H 10/15/23 09:59 C.trachomatis RNA (TMA) Not detected (NOT DETECTED) 10/14/23 10:30 Chlamydia/GC Comment See note 12/20/23 10:30 N.gonorrhoeae RNA (TMA) Not detected (NOT DETECTED) 10/14/23 10:30 Blood Type O Positive 10/14/23 10:30 Rho(D) Type Rh positive 10/14/23 10:30 Antibody Screen Negative 10/14/23 10:30 Procedures Performed repeat low-transverse Vitals Last Vital Signs Temp 97.2 F L 10/16/23 11:07 Pulse 63 10/16/23 11:07 Resp 18 10/16/23 10:00 BP 119/80 10/16/23 11:07 Pulse Ox 99 10/16/23 11:06 O2 Del Method Room Air 10/16/23 10:00 Results Labs OB ([facility]): Obstetrics US 04/30/23 Blood Type O Positive 10/14/23 Antibody Screen Negative 10/14/23 Hct 24.3 % (36-47) L 10/15/23 Hgb 8.00 g/dL (11.27-16.99) L 10/15/23 Rho(D) Type Rh positive 10/14/23 Plt Count 188 10^3/cmm (157-399) 10/15/23 Hep Bs Antigen Non-reactive (Nonreactive) 05/05/23 Hepatitis C Antibody Reactive (Nonreactive) H 05/05/23 Rubella IgG Antibody 74.7 IU/mL (0.0-10.0) H 05/05/23 RPR Reactive (Nonreactive) H 10/15/23 T.pallidum Ab (FTA-ABS) Reactive (NON-REACTIVE) A 07/01/23 HIV 1&2 Ab & HIV 1 Ag Non-reactive (Non-Reactiv) 05/05/23 TSH 0.92 uIU/mL (0.27-4.20) 07/01/23 C.trachomatis RNA (TMA) Not detected (NOT DETECTED) 10/14/23 N.gonorrhoeae RNA (TMA) Not detected (NOT DETECTED) 10/14/23 T. vaginalis Amp RNA Not detected (NOT DETECTED) 07/14/23 Chlamydia/GC Comment See note 10/14/23 Gest Glucose Tolerance 103 mg/dL (70-139) 07/30/23 Urine Opiates Screen Negative ng/mL (Negative) 10/14/23 Ur Barbiturates Screen Negative ng/mL (Negative) 10/14/23 Ur Phencyclidine Scrn Negative ng/mL (Negative) 10/14/23 Ur Amphetamines Screen Negative ng/mL (Negative) 10/14/23 U Benzodiazepines Scrn Negative ng/mL (Negative) 10/14/23 Urine Cocaine Screen Negative ng/mL (Negative) 10/14/23 U Marijuana (THC) Screen Positive ng/mL (Negative) H 10/14/23 Micro Urine Specimen 05/05/23 Discharge Plan Discharge Patient Disposition: Home Condition: Stable Prescriptions: New Percocet 5-325 mg tablet 1 tab PO BID PRN (Reason: pain) Qty: 20 0RF Colace 100 mg capsule 100 mg PO BID Qty: 60 2RF Continued famotidine 40 mg tablet 40 mg PO BID Qty: 60 0RF albuterol sulfate [Ventolin HFA] 90 mcg/actuation HFA aerosol inhaler 2 puff inhalation Q6H PRN (Reason: shortness of breath or wheezing) Qty: 8.5 0RF ondansetron HCl 4 mg tablet 4 mg PO Q8H PRN (Reason: nausea and vomiting) Qty: 30 2RF Vitamin Plus Low Iron 27 mg iron- 1 mg tablet 1 tab PO DAILY Qty: 30 12RF ondansetron HCl 4 mg tablet 4 mg PO Q8H PRN (Reason: nausea and vomiting) Qty: 20 2RF metoclopramide HCl [Reglan] 10 mg tablet 10 mg PO Q6H PRN (Reason: nausea and vomiting) Qty: 30 2RF Discontinued azithromycin 250 mg tablet See Rx Instructions PO .COMPLEX Qty: 6 0RF Rx Instructions: take 500 mg today (day 1), then 250 mg for 4 days (days 2-5) PO Bicillin L-A 1,200,000 unit/2 mL syringe 1.2 mmu IM ONCE Qty: 20 0RF Discharge Orders: Discharge Order (Routine); Ordered 10/16/23 Ordered By: Alejandro Buchanan Referrals: Alejandro Buchanan MD [Physician] - 10/21/23 10:00 am (You have an appointment with Dr. Buchanan on October 21 at 10 am.) Discharge Diet: Usual diet Discharge Activity: Increase activity as tolerated Patient Instructions: Oxycodone/Acetaminophen (By mouth) (Percocet, Roxicet), Laxative, Stool Softeners (By mouth) (Doculax, Colace, Colace Clear, DSS), Depression (DC), Opioid Safety (DC), Preeclampsia and Eclampsia After Delivery (GEN), Hemorrhage (DC), OB Discharge Report, OB Food/Drug Interaction Guide, OB Care at Home, OB Home Care, Abnormal Bleeding Discharge Attestations [employer] Time Spent in Discharge Care*: less than 30 min Coding Level of Care Code Acute Code for Chg Fwd Diagnoses History of delivery Z98.891 Time Spent (min) 20
[2023-10-16 19:20] VITALS: BP 119/80; PULSE 63; RESP 16; TEMP 36.2; O2SAT 98
== END 2023-10-16 18:45 | disposition home or self-care (01) | DRG 788 ==
LOC: OPOB 09:50 → OBGYN 09:50
PROVIDERS: Admitting Provider Obstetrics & Gynecology; Visit Provider Obstetrics & Gynecology
PROC: 10D00Z1 Extraction of Products of Conception, Low, Open Approach (ICD-10-PCS; CPT 59514; principal; 2023-10-14 12:00)
DX: O34.211 Maternal care for low transverse scar from previous cesarean delivery (principal); N85.8 Other specified noninflammatory disorders of uterus; Z3A.39 39 weeks gestation of pregnancy; Z37.0 Single live birth; Z86.19 Personal history of other infectious and parasitic diseases
CPT/HCPCS: 36415; 51702; 59025; 59409; 80306; 85025; 85027; 86592; 86850; 86900; 87491; 87591; 96374; 96376; J0690; J1885; J2274; J2371; J2405; J2765; J3490; J7120; J7121

== ENCOUNTER → 2024-01-19 14:10 | Outpatient (BNVA) | payer MEDICAID, SELFPAY | PROVIDERS: Visit Provider Student in an Organized Health Care Education/Training Program | DX: A53.9 Syphilis, unspecified (principal); R76.8 Other specified abnormal immunological findings in serum | CPT/HCPCS: 36415; 86592; 87522 ==

== ENCOUNTER 2024-06-16 12:25 | Inpatient (IN) | payer MEDICAID, SELFPAY ==
[2024-06-16] VITALS (12 sets, daily range): BP systolic 97–144; BP diastolic 58–100; PULSE 75–113; RESP 15–18; TEMP 36.8–39.3; O2SAT 96–100; BMI 32.4
--- NOTE | 2024-06-16 13:42 | XR_ITS ---
WS: [id number] Portable AP upright chest, 06/16/2024 Clinical Data: dyspnea/cough Comparison: None. Findings: No nodules, masses or effusions are seen. The heart is normal. The pulmonary vascularity is not increased. No pneumonia or pneumothorax is seen. XR/XR chest 1V portable [id number] Impression: Negative chest.
--- NOTE | 2024-06-16 13:48 | CT_ITS ---
WS: [id number] CT ABDOMEN AND PELVIS NONCONTRAST HISTORY: Abdominal pain TECHNIQUE: Imaging performed through the abdomen and pelvis. Coronal and sagittal reformats are submi tted. All CT scans at [facility] use at least one of these dose optimization techniques: auto mated exposure control; mA and/or kV adjustment per patient size (includes targeted exams where dose is matched to clinical indication); or iterative reconstruction. DLP: 820.38 mGy.cm COMPARISON: None available. Lower thorax: Lung bases are clear. Visualized heart is normal. No hiatal hernia. Liver: Normal size liver with hepatic steatosis. Gallbladder: Normal gallbladder. No pericholecystic fluid or cholelithiasis. No gallbladder wall thic kening. Pancreas: Normal size and attenuation. Normal pancreatic duct. No pancreatitis or mass. Spleen: Normal. Adrenal glands: Normal. No mass. Right kidney: Mildly enlarged RIGHT kidney with perinephric stranding. Stranding is predominant in th e mid and lower kidney. No renal calcifications. Minimal prominence of the renal pelvis with proximal periureteral stranding and a few small periureteral lymph nodes. The ureter is normal caliber. Left kidney: Normal size kidney with no mass or hydronephrosis. Aorta: Normal abdominal aorta, no aneurysm or atherosclerosis. No free air. No free fluid. There are small retroperitoneal lymph nodes. Aortocaval and para-aortic l ymph nodes are identified. GI tract: Normal noncontrast imaging of the stomach, small bowel and colon. No obstruction or wall th ickening. Normal appendix. Abdominal wall: Negative. No hernia. Pelvis: No free fluid in the pelvis. Uterus is normal size and anteverted. Osseous structures: Unremarkable. CT/CT abdomen pelvis wo con [id number] IMPRESSION: 1. Mild RIGHT renal enlargement with perinephric stranding and proximal periur eteral stranding. No obstructing stone identified. Findings are most likely due to acute pyelonephritis. 2. Normal appendix. 3. No GI tract obstruction. 4. Hepatic steatosis.
--- NOTE | 2024-06-16 13:49 | ED_ITS ---
HPI - Nausea/Vomiting/Diarrhea 2 General: Chief complaint: Nausea/Vomiting/Diarrhea Stated complaint: nausea/fever/vomitting Time Seen by Provider: 06/16/24 13:40 History of Present Illness: 23-year-old female presents emergency ro om planing nausea vomiting fever generalized body ache chills slight cough nonproductive. Patient reports a temp up to 103 at home. She also is complaining of mild dysuria. She complaining of generalized back pain. Denies any hematemesis or coffee-ground emesis. She is concerned as well that she may be . Associated nausea: Yes Associated symtoms: Reports dysuria, fatigue, malaise and nausea; Denies chest pain Related Data Previous Rx's Medication Instructions Recorded ondansetron HCl 4 mg tablet 4 mg PO Q8H PRN nausea and 05/05/23 vomiting #30 tabs vitamin with calcium 1 tab PO DAILY #30 tabs 05/05/23 no.72-iron 27 mg-folic acid 1 mg tablet ( Vitamins Plus Low Iron) metoclopramide HCl 10 mg tablet 10 mg PO Q6H PRN nausea and 05/15/23 (Reglan) vomiting #30 tabs famotidine 40 mg tablet 40 mg PO BID #60 tabs 06/03/23 albuterol sulfate 90 mcg/actuation 2 puff inhalation Q6H PRN 06/27/23 aerosol inhaler (Ventolin HFA) shortness of breath or wheezing #8.5 grams ondansetron HCl 4 mg tablet 4 mg PO Q8H PRN nausea and 08/25/23 vomiting #20 tabs mupirocin 2 % topical ointment 1 applic topical BID #50 grams 10/21/23 Allergies Allergy/AdvReac Type Severity Reaction Status Date / Time diphenhydramine Allergy ADR-Cramping Verified 01/19/24 13:39 [From Benadryl] of the Muscles benodryl Allergy restless Uncoded 01/19/24 13:39 leg Review of Systems 2 Const: Reports: fever(s), chills, body aches, change in appetite, fatigue and malaise Card: Denies: chest pain Resp: Denies: dyspnea GI: Reports: abdominal pain, nausea, vomiting and diarrhea : Reports: dysuria and urinary frequency; Denies: urinary urgency Musc: Denies: neck pain or back pain Skin/Breast: Denies: rash PFSH ED 2 PFSH: Medical History Supervision of other normal delivery delivered Surgical History History of delivery Family History Denies family history of Colon cancer Ovarian cancer Diabetes Heart disease Hyperlipidemia Breast cancer Hypertension Uterine cancer Thyroid disease Stroke Physical Exam 2 Const: GENERAL APPEARANCE: cooperative; not comfortable ORIENTATION/CONSCIOUSNESS: Yes awake, Yes oriented to person, Yes oriented to place and Yes oriented to time HENMT: COMMON NORMALS: normocephalic, atraumatic and hearing grossly normal bilaterally HEAD & SCALP: normocephalic and atraumatic Resp: COMMON NORMALS: normal respiratory effort, No retractions, No use of accessory muscles and clear to auscultation bilaterally AUSCULTATION: clear to auscultation bilaterally Cardio: COMMON NORMALS: regular rate, regular rhythm and No murmurs present (Cardio) RATE: regular rate RHYTHM: regular rhythm GI: COMMON NORMALS: Soft to palpation and No hepatosplenomegaly present A USCULTATION: Yes normoactive bowel sounds PALPATION: Yes Soft to palpation, No Tenderness to palpation present (GI), No Guarding due to palpation present (GI) and Yes No hepatosplenomegaly present : BLADDER/KIDNEY EXAM: Yes CVA tenderness Back/Pelvis: GENERAL BACK: Yes CVA tenderness CVA tenderness: bilateral Extremity: COMMON NORMALS: normal to inspection, capillary refill normal, no clubbing, cyanosis or edema, no calf tenderness and no pedal edema Neuro: SENSORIUM/ORIENTATION: Yes oriented to person, Yes oriented to place and Yes oriented to time Skin: COMMON NORMALS: no rashes or lesions noted GENERAL SKIN EXAM: no rashes or lesions noted Course 2 Vital Signs: Vital signs: Vital Signs Temperature 99.4 F 06/16/24 12:31 Pulse Rate 105 H 06/16/24 14:03 Respiratory Rate 18 06/16/24 12:31 Blood Pressure 144/100 06/16/24 14:03 Pulse Oximetry 100 06/16/24 14:03 Oxygen Delivery Me thod Room Air 06/16/24 12:31 MDM - Nausea/Vomiting/Diarrhea Medical Decision Making Leukocytosis with evidence of pyelonephritis. No evidence of renal stone or abscess no evidence of other intra-abdominal pathology started on IV antibiotics cultures done additionally were waiting on a COVID she did have a known COVID exposure given her constellation of symptoms suspect she may have COVID as well. Admit IV fluid IV antibiotics discussed with Dr. Meyer orders written Medical Records I reviewed the patient's medical records. Lab Data I reviewed the patient's lab results. 06/16/24 14:15 06/16/24 14:15 Radiology Impressions Chest X-Ray 06/16/24 13:42 Impression: Negative chest. Abdomen/Pelvis CT 06/16/24 13:48 IMPRESSION: 1. Mild RIGHT renal enlargement with perinephric stranding and proximal periureteral stranding. No obstructing stone identified. Findings are most likely due to acute pyelonephritis. 2. Normal appendix. 3. No GI tract obstruction. 4. Hepatic steatosis. Laboratory Results WBC 11.54 10^3/uL (3.29-11.43) H 06/16/24 14:15 RBC 4.54 10^6/uL (3.85-5.65) 06/16/24 14:15 Hgb 11.00 g/dL (11.27-16.99) L 06/16/24 14:15 Hct 34.9 % (36-47) L 06/16/24 14:15 MCV 76.9 fl (85-98) L 06/16/24 14:15 MCH 24.2 pg (27-33) L 06/16/24 14:15 MCHC 31.5 g/dL (30-55) 06/16/24 14:15 RDW 16.4 % (12.1-15.1) H 06/16/24 14:15 Plt Count 285 10^3/cmm (157-399) 06/16/24 14:15 MPV 11.0 fL (7.4-10.4) H 06/16/24 14:15 Neut % (Auto) 84.9 % 06/16/24 14:15 Lymph % (Auto) 9.6 % 06/16/24 14:15 [place] % (Auto) 4.5 % 06/16/24 14:15 Eos % (Auto) 0.0 % 06/16/24 14:15 Baso % (Auto) 0.3 % 06/16/24 14:15 Neut # (Auto) 9.80 10^3/uL (1.8-7.7) H 06/16/24 14:15 Lymph # (Auto) 1.1 10^3/uL (0.8-4.8) 06/16/24 14:15 [place] # (Auto) 0.5 10^3/uL (0.2-0.9) 06/16/24 14:15 Eos # (Auto) 0.0 10^3/uL (0.0-0.8) 06/16/24 14:15 Baso # (Auto) 0.0 10^3/uL (0.0-0.1) 06/16/24 14:15 Nucleated RBC % (auto) 0 % 06/16/24 14:15 Nucleated RBCs # 0.0 /100WBC 06/16/24 14:15 Sodium 134 mmol/L (136-145) L 06/16/24 14:15 Potassium 3.4 mmol/L (3.5-5.1) L 06/16/24 14:15 Chloride 96 mmol/L (98-107) L 06/16/24 14:15 Carbon Dioxide 20 mmol/L (22-29) L 06/16/24 14:15 Anion Gap 21.4 (5-19) H 06/16/24 14:15 BUN 9 mg/dL (6-20) 06/16/24 14:15 Creatinine 0.9 mg/dL (0.5-0.9) 06/16/24 14:15 GFR Calculation 76.3 mL/min (90-130) L 06/16/24 14:15 Glucose 107 mg/dL (65-115) 06/16/24 14:15 Calculated Osmolality 277 mOsm/kg (285-295) L 06/16/24 14:15 Lactic Acid 1.8 mmol/L (0.5-2.2) 06/16/24 14:15 Calcium 8.8 mg/dL (8.5-10.5) 06/16/24 14:15 Total Bilirubin 0.9 mg/dL (0.15-1.2) 06/16/24 14:15 AST 8 U/L (0-32) 06/16/24 14:15 ALT 6 U/L (0-33) 06/16/24 14:15 Alkaline Phosphatase 103 U/L (35-105) 06/16/24 14:15 Total Protein 7.8 g/dL (6.6-8.7) 06/16/24 14:15 Albumin 3.9 g/dL (3.5-5.2) 06/16/24 14:15 Globulin 3.9 g/dL (1.3-4.6) 06/16/24 14:15 Lipase 9 U/L (13-60) L 06/16/24 14:15 HCG, Qual Negative (Negative) 06/16/24 14:05 Urine Color Yellow (Yellow) 06/16/24 15:10 Urine Appearance Cloudy (CLEAR) A 06/16/24 15:10 Urine pH 7.0 (5-7) 06/16/24 15:10 Ur Specific [place] 1.011 (1.005-1.030) 06/16/24 15:10 Urine Protein 2+ (Negative) A 06/16/24 15:10 Urine Glucose (UA) Negative (Normal) 06/16/24 15:10 Urine Ketones 2+ (Negative) H 06/16/24 15:10 Urine Blood 1+ (Negative) A 06/16/24 15:10 Urine Nitrate Negative (Negative) 06/16/24 15:10 Urine Bilirubin Negative (Negative) 06/16/24 15:10 Urine Urobilinogen 1.0 mg/dL (Negative) 06/16/24 15:10 Ur Leukocyte Esterase 2+ (Negative) A 06/16/24 15:10 Urine RBC 0-2 /hpf (0-2) 06/16/24 15:10 Urine WBC >100 /hpf (0-5) H 06/16/24 15:10 Ur Squamous Epith Cells 6-10 /hpf (0-5) 06/16/24 15:10 Amorphous Sediment Not Reportable 06/16/24 15:10 Urine Bacteria 2+ /hpf (NONE) H 06/16/24 15:10 Hyaline Casts 1.21 /lpf 06/16/24 15:10 All radiology interpretation(s) finalized by discharge Discharge Plan Discharge Patient Disposition: Admitted As Inpatient Clinical Impression: Pyelonephritis, Hepatitis C antibody positive in blood, Positive RPR test, Contact with and (suspected) exposure to covid-19 Condition: Stable Prescriptions: No Action famotidine 40 mg tablet 40 mg PO BID Qty: 60 0RF albuterol sulfate [Ventolin HFA] 90 mcg/actuation HFA aerosol inhaler 2 puff inhalation Q6H PRN (Reason: shortness of breath or wheezing) Qty: 8.5 0RF mupirocin 2 % ointment 1 applic topical BID Qty: 50 0RF ondansetron HCl 4 mg tablet 4 mg PO Q8H PRN (Reason: nausea and vomiting) Qty: 30 2RF Vitamin Plus Low Iron 27 mg iron- 1 mg tablet 1 tab PO DAILY Qty: 30 12RF ondansetron HCl 4 mg tablet 4 mg PO Q8H PRN (Reason: nausea and vomiting) Qty: 20 2RF metoclopramide HCl [Reglan] 10 mg tablet 10 mg PO Q6H PRN (Reason: nausea and vomiting) Qty: 30 2RF Coding Level of Care Code ED Assistant Commissioner for Chg [facility]
[2024-06-16 14:33] LABS: Basophils % 0.3 %; Hematocrit 34.9 % (36-47); Lymphocytes # 1.1 10^3/uL (0.8-4.8); Lymphocytes % 9.6 %; Mean Corpuscular HGB Conc 31.5 g/dL (30-55); Mean Corpuscular Hemoglobin 24.2 pg (27-33); Mean Corpuscular Volume 76.9 fl (85-98); Monocytes # 0.5 10^3/uL (0.2-0.9); Monocytes % 4.5 %; Neutrophils % 84.9 %; Nucleated Red Blood Cells % 0 %; Platelet Count 285 10^3/cmm (157-399); Red Blood Count 4.54 10^6/uL (3.85-5.65); Red Cell Distribution Width 16.4 % (12.1-15.1); White Blood Count 11.54 10^3/uL (3.29-11.43)
[2024-06-16] MEDS: ondansetron 2 mg/ML SDV 2 mL 4 MG IVP ×2 (14:39→18:26)
[2024-06-16 14:50] LABS: HCG, Serum Qual Negative (Negative)
[2024-06-16 14:57] LABS: Alanine Aminotransferase 6 U/L (0-33); Albumin Level 3.9 g/dL (3.5-5.2); Alkaline Phosphatase 103 U/L (35-105); Anion Gap 21.4 (5-19); Aspartate Amino Transferase 8 U/L (0-32); Blood Urea Nitrogen 9 mg/dL (6-20); Calcium 8.8 mg/dL (8.5-10.5); Carbon Dioxide 20 mmol/L (22-29); Chloride 96 mmol/L (98-107); Creatinine Clr Calc Pharmacy 104.9612; Globulin 3.9 g/dL (1.3-4.6); Glomerular Filtration Rate 76.3 mL/min (90-130); Glucose 107 mg/dL (65-115); Lipase 9 U/L (13-60); Osmolality Calculated 277 mOsm/kg (285-295); Potassium 3.4 mmol/L (3.5-5.1); Sodium 134 mmol/L (136-145); Total Bilirubin 0.9 mg/dL (0.15-1.2); Total Protein 7.8 g/dL (6.6-8.7)
[2024-06-16 14:58] LABS: Lactic Sepsis W/Reflex 1.8 mmol/L (0.5-2.2)
[2024-06-16 15:12] LABS: Charge for UA Resulting for Rev
[2024-06-16 15:15] LABS: Bilirubin Urine Negative (Negative); Blood Urine 1+ (Negative); Glucose Urine UA Negative (Normal); Ketones Urine 2+ (Negative); Leukocyte Esterase Urine 2+ (Negative); Nitrate Urine Negative (Negative); Protein Urine 2+ (Negative); Specific Gravity, Urine 1.011 (1.005-1.030); Urine Appearance Cloudy (CLEAR); Urine Color Yellow (Yellow)
[2024-06-16 15:18] LABS: Bacteria Urine 2+ /hpf; Hyaline Casts Urine 1.21 /lpf; RBC Urine 0-2 /hpf (0-2); WBC Urine >100 /hpf (0-5)
[2024-06-16 15:19] LABS: Add Urine Culture? Yes
[2024-06-16] MEDS: cefTRIAXone 1,000 mg SDV 1000 MG IVP (15:41)
--- NOTE | 2024-06-16 15:43 | P.HP_ITS ---
Providers/Chief Complaint 2 Chief Complaint: nausea/fever/vomitting History of Present Illness Shad Khan is a 23 year old female with past medical history of syphilis, hepatitis C presents to the ER today with complaints of dysuria, difficulty in passing urine for around 5 to 6 days, right flank pain for 4 to 5 days and high- grade fever going up to 103 with chills for 3 days. Patient has not been able to maintain her oral hydration because of nausea and vomiting for last 2 to 3 days. She gives history of UTI in the past but has never been admitted for the same. Review of Systems 2 General: Reports: 10 or more systems reviewed and unremarkable except in HPI and below Const: Denies: fever(s), chills, body aches, change in appetite, change in weight, malaise, night sweats, diaphoresis, change in sleep pattern, daytime sleepiness or snoring Eyes: Denies: change in vision, blurry vision, photophobia, eye discomfort or eye discharge ENMT: Denies: throat pain, enlarged tonsils, hoarseness, mouth pain, oral sores, dry mouth, tinnitus, nasal congestion or post nasal drip Card: Denies: chest pain, palpitations, irregular heart rhythm, edema, swelling of feet/ankles, lightheadedness, syncope, pre-syncope, dyspnea on exertion, orthopnea, leg pain with exertion or acrocyanosis Resp: Denies: dyspnea, productive cough, non-productive cough, wheezing, stridor, pain on inspiration, change in phlegm color, hemoptysis or chest congestion GI: Denies: abdominal pain, nausea, vomiting, hematemesis, coffee ground emesis, dysphagia, heartburn, diarrhea, constipation, bloating, GI cramping, change in bowel habits, pain on defecation, hematochezia or melena : Denies: flank pain, dysuria, urinary frequency, urinary urgency, urinary hesitancy, nocturia or hematuria Musc: Denies: neck pain, back pain, extremity pain, joint pain, joint swelling, joint redness, joint stiffness or limited range of motion Neuro: Denies: headache(s), numbness in extremities, weakness in extremities, sensory changes, lack of coordination, difficulty walking, frequent falls, dizziness, vertigo, confusion, Slurred speech present, difficulty communicating thoughts or seizure-like activity Psych: Denies: anxiety, depression, mood swings, panic attacks, hopelessness or irritability Endo: Denies: polyuria, polydipsia, tired all the time, cold intolerance, excessive sweating, flushing or heat intolerance Samuel/Lymph: Denies: easy bruising or easy bleeding All/Imm: Denies: tongue swelling, facial swelling or acute wheezing Medications/Allergies Home Medications Medication Instructions Recorded Confirmed Last Taken Type ondansetron HCl 4 mg tablet 4 mg PO Q8H PRN nausea and 05/05/23 01/19/24 Unknown Rx vomiting #30 tabs vitamin with calcium 1 tab PO DAILY #30 tabs 05/05/23 01/19/24 Unknown Rx no.72-iron 27 mg-folic acid 1 mg tablet ( Vitamins Plus Low Iron) metoclopramide HCl 10 mg tablet 10 mg PO Q6H PRN nausea and 05/15/23 01/19/24 Unknown Rx (Reglan) vomiting #30 tabs famotidine 40 mg tablet 40 mg PO BID #60 tabs 06/03/23 01/19/24 Unknown Rx albuterol sulfate 90 mcg/actuation 2 puff inhalation Q6H PRN 06/27/23 01/19/24 Unknown Rx aerosol inhaler (Ventolin HFA) shortness of breath or wheezing #8.5 grams ondansetron HCl 4 mg tablet 4 mg PO Q8H PRN nausea and 08/25/23 01/19/24 Unknown Rx vomiting #20 tabs mupirocin 2 % topical ointment 1 applic topical BID #50 grams 10/21/23 01/19/24 Unknown Rx Allergies Allergy/AdvReac Type Severity Reaction Status Date / Time diphenhydramine Allergy ADR-Cramping Verified 01/19/24 13:39 [From Benadryl] of the Muscles benodryl Allergy restless Uncoded 01/19/24 13:39 leg PFSH Acute 2 PFSH: Medical History (Updated 06/16/24 @ 17:26 by Bright Meyer MD) Hepatitis C antibody positive in blood Syphilis Positive RPR test Supervision of other normal delivery delivered Surgical History History of delivery Family History Denies family history of Colon cancer Ovarian cancer Diabetes Heart disease Hyperlipidemia Breast cancer Hypertension Uterine cancer Thyroid disease Stroke Vitals/I&O/Wt Last Vital Signs Temp 99.4 F 06/16/24 12:31 Pulse 105 H 06/16/24 14:03 Resp 18 06/16/24 12:31 BP 144/100 06/16/24 14:03 Pulse Ox 100 06/16/24 14:03 O2 Del Method Room Air 06/16/24 12:31 Weight last 48 hrs Weight 88.451 kg Physical Exam 2 Narrative: General: No acute distress, AO x3, uncomfortable because of chills HEENT: PERRLA, pupils bilaterally equal and reactive Chest: Normal vesicular breath sounds, no added sounds, equal good air entry bilaterally CVS: S1-S2 regular, no murmurs, no tachycardia, no gallops, no rubs Abdomen: Soft, nontender, no organomegaly, bowel sounds present, right flank pain Neuro: No focal deficits, no facial deformity, AO x3, power 5/5 in all limbs Quick SOFA Score: Respiratory Rate: 18 Blood Pressure: 137/79 [place] Coma Scale: 15 qSOFA Score: 0 If qSOFA score 2 or greater, continue: Blood Pressure Mean: 98 Bilirubin (mg/dl): 0.9 Platelets (x10?/ml): 285 Creatinine (mg/dl): 0.9 Evaluation: Current stage of sepsis: sepsis Sepsis stage criteria used: [facility] Sep-1 and Sepsis-3 Crystalloid fluids: 30 mL/kg crystalloid fluids ordered and initiated within 3 hours Blood cultures ordered: Yes Possible source: genitourinary Focused Exam: Vital signs: Temp Pulse Resp BP Pulse Ox O2 Del Method 06/16/24 14:03 105 H 144/100 100 06/16/24 12:31 99.4 F 113 H 18 106/63 98 Room Air Date exam was performed: 06/16/24 Time exam was performed: 17:13 2 Sepsis Screen No Definite Risk 06/16/24 16:50 Respiratory Rate 18 breaths/min (12 - 18) 06/16/24 12:31 Blood Pressure 137/79 mmHg 06/16/24 16:50 [place] Coma Scale Score 15 06/16/24 12:31 Quick SOFA Score 0 06/16/24 17:20 SOFA Score: 2 [place] Coma Scale Score 15 06/16/24 12:31 Blood Pressure Mean 98 mmHg 06/16/24 16:50 Total Bilirubin 0.9 mg/dL (0.15-1.2) 06/16/24 14:15 Platelet Count 285 10^3/cmm (157-399) 06/16/24 14:15 Creatinine 0.9 mg/dL (0.5-0.9) 06/16/24 14:15 SOFA Score 0 06/16/24 15:45 Data 06/16/24 14:15 06/16/24 14:15 Micro: Microbiology 06/16/24 14:05 Blood Culture - Preliminary Blood SPECIMEN COLLECTED 06/16/24 14:15 Blood Culture - Preliminary Blood SPECIMEN COLLECTED A&P Assessment and plan (1) Sepsis: SIRS: Tachycardic, Febrile, Leukocytosis Source: UTI/pyelonephritis End organ damage: Not present Lactic acid within normal limits Patient did eceive full 30 mL/kg BW. Continue with D5 NS with 20 mEq of potassium at 75 cc/h. Monitor blood pressures. Keep mean artery pressure 65 mmHg. Blood culture, urine culture, MRSA swab, procalcitonin, bacterial antigen. For now start patient on IV ceftriaxone empirically. De-escalate antibiotics as per culture results. (2) Pyelonephritis: As seen on CT abdomen/pelvis. Follow-up cultures. (3) Nausea and vomiting: In setting of pyelonephritis. Clear liquid diet for now. Advance as tolerated. Protonix daily, Zofran as needed. (4) High anion gap metabolic acidosis: In setting of dehydration from nausea and vomiting. Hydration as above. Recheck BMP in AM. Plan Exposure to COVID-19: COVID-19 PCR negative. Monitor for symptoms for now. History of hepatitis C: Most recent viral load negative. History of syphilis: Most recent RPR titer from December is 1: 2. Will recheck. Check chlamydia, gonorrhea. Full code Full liquid diet Protonix for PUD prophylaxis Lovenox for DVT prophylaxis Attestations 2 Medical Necessity Statement*: Admission for more than 2 midnights for management of sepsis in setting of pyelonephritis in a patient with history of syphilis, nausea and vomiting and unable to keep oral hydration Diagnoses Sepsis A41.9 Nausea and vomiting R11.2 Pyelonephritis N12 High anion gap metabolic acidosis E87.29
[2024-06-16 16:34] LABS: Adenovirus Not Detected (NOT DETECT); Chlamydia Pneumoniae Not Detected (NOT DETECT); Coronavirus 229E,HKU1,NL63,OC4 Not Detected (NOT DETECT); Human Metapneumovirus Not Detected (NOT DETECT); Human Rhinovirus/Enterovirus Not Detected (NOT DETECT); Influenza A Not Detected (NOT DETECT); Influenza A H1 Not Detected (NOT DETECT); Influenza A H1-2009 Not Detected (NOT DETECT); Influenza A H3 Not Detected (NOT DETECT); Influenza B Not Detected (NOT DETECT); Mycoplasma Pneumoniae Not Detected (NOT DETECT); Parainfluenza Virus Type 1 Not Detected (NOT DETECT); Parainfluenza Virus Type 2 Not Detected (NOT DETECT); Parainfluenza Virus Type 3 Not Detected (NOT DETECT); Parainfluenza Virus Type 4 Not Detected (NOT DETECT); Respiratory Syncytial Virus A Not Detected (NOT DETECT); Respiratory Syncytial Virus B Not Detected (NOT DETECT); SARS-COV-2 Not Detected (NOT DETECT)
[2024-06-16 16:38] LABS: Procalcitonin 1.89 ng/mL (0-0.5)
[2024-06-16 17:03] LABS: Iron 12 ug/dL (37-145); Percent Saturation 3.4 % (20-50); Total Iron Binding Capacity 351 mcg/dl; Unsaturated Iron Binding 339 ug/dL (112-347)
[2024-06-16 17:19] LABS: Vitamin B12 441 pg/mL (232-1245)
[2024-06-16] MEDS: dextrose 5%-ns + KCl 20 20 MEQ/1,000 ML BAG 75 MEQ IV (18:25)
[2024-06-16] MEDS: pantoprazole 40 mg SDV IVP (18:26)
[2024-06-16] MEDS: enoxaparin 40 mg/0.4 mL Syringe SUBCUT (18:26)
[2024-06-16] MEDS: morphine 4 mg/mL SDV 1 mL 2 MG IVP (19:35)
[2024-06-16] MEDS: acetaminophen 325 mg Tablet 650 MG PO (20:57)
[2024-06-17] VITALS (12 sets, daily range): BP systolic 98–132; BP diastolic 55–78; PULSE 69–91; RESP 15–16; TEMP 37.4–38.3; O2SAT 96–100
[2024-06-17] MEDS: ondansetron 2 mg/ML SDV 2 mL 4 MG IVP ×3 (00:41→19:38)
[2024-06-17] MEDS: metoclopramide 5 mg/mL SDV 2 mL IVP (04:41)
[2024-06-17 05:15] LABS: Basophils % 0.1 %; Hematocrit 30.3 % (36-47); Lymphocytes # 1.1 10^3/uL (0.8-4.8); Lymphocytes % 12.9 %; Mean Corpuscular HGB Conc 31.7 g/dL (30-55); Mean Corpuscular Hemoglobin 24.1 pg (27-33); Mean Corpuscular Volume 76.1 fl (85-98); Mean Platelet Volume 11.7 fL (7.4-10.4); Monocytes # 0.7 10^3/uL (0.2-0.9); Neutrophils # 6.75 10^3/uL (1.8-7.7); Neutrophils % 78.3 %; Nucleated Red Blood Cells % 0 %; Platelet Count 222 10^3/cmm (157-399); Red Blood Count 3.98 10^6/uL (3.85-5.65); Red Cell Distribution Width 16.5 % (12.1-15.1); White Blood Count 8.62 10^3/uL (3.29-11.43)
[2024-06-17 05:36] LABS: Alanine Aminotransferase 6 U/L (0-33); Albumin Level 3.2 g/dL (3.5-5.2); Alkaline Phosphatase 100 U/L (35-105); Anion Gap 16.6 (5-19); Aspartate Amino Transferase 10 U/L (0-32); Blood Urea Nitrogen 7 mg/dL (6-20); Calcium 7.9 mg/dL (8.5-10.5); Carbon Dioxide 19 mmol/L (22-29); Chloride 108 mmol/L (98-107); Creatinine Clr Calc Pharmacy 118.0813; Globulin 3.1 g/dL (1.3-4.6); Glomerular Filtration Rate 87.4 mL/min (90-130); Glucose 128 mg/dL (65-115); Magnesium 2.1 mg/dL (1.7-2.3); Osmolality Calculated 290 mOsm/kg (285-295); Potassium 3.6 mmol/L (3.5-5.1); Sodium 140 mmol/L (136-145); Total Bilirubin 0.5 mg/dL (0.15-1.2); Total Protein 6.3 g/dL (6.6-8.7)
[2024-06-17 05:43] LABS: Procalcitonin 1.19 ng/mL (0-0.5)
[2024-06-17 05:59] LABS: Folate Level 5.7 ng/mL (4.8-37.3)
[2024-06-17] MEDS: morphine 4 mg/mL SDV 1 mL 2 MG IVP ×3 (07:56→19:38)
[2024-06-17] MEDS: dextrose 5%-ns + KCl 20 20 MEQ/1,000 ML BAG 75 MEQ IV (07:59)
--- NOTE | 2024-06-17 08:54 | PC.CHAP ---
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 [] Patient/Family/Request visit [] Outpatient visit [] Follow-up visit [] Physician referral [] Code/Alert [] Routine visit [] Staff referral [] Actively dying [] Patient sleeping [] Family support [] [] Out of room [] Palliative care [] [] Receiving care in room [] Pre-surgical visit [] Trauma [] Long length of stay [] ICU visit [] Other: Relational/Emotional Strength [] Patient feels connected with others/family/visitors/staff [] Distress [] Loneliness/isolation [] Abandonment Spirituality of Patient [] Person of Mary [] Attends Scientologist of their Mary [] Believes in Prayer [] Reads Bible or Shinto materials [x] There are Spiritual issues to be addressed Awning Hanger Helper Interventions [] Prayer [] Active listening [] Non-anxious presence [] Spiritual/emotional support [] Crisis/trauma care [] Spiritual counseling [] Bereavement support [] Provided bereavement packet [] Provided Bible/devotional materials [] Provided toy/stuffed animal, coloring book to patient or family member [] Provided Communion [] Anointing/[place]oca [] Salvation [] Completed spiritual assessment [] Other: Impact on Illness or Injury [] Angry [] Fearful [] Anxious [] Often cries [] Exhaustion [] Unable to work [] Unable to attend bahai [] Unable to walk/stand [] Unable to read [] Unable to drive [] Unable to eat/drink [] Unable to sleep [] Unable to be with family [] Patient intubated [] Other: Summary was going to talk then refused Time spent with patient 5 min
--- NOTE | 2024-06-17 09:30 | PC.PHAR ---
pt states takes no medications-our pharmacy list was a year old.
[2024-06-17 12:52] LABS: Adenovirus Not Detected (NOT DETECT); Chlamydia Pneumoniae Not Detected (NOT DETECT); Coronavirus 229E,HKU1,NL63,OC4 Not Detected (NOT DETECT); Human Metapneumovirus Not Detected (NOT DETECT); Human Rhinovirus/Enterovirus Not Detected (NOT DETECT); Influenza A Not Detected (NOT DETECT); Influenza A H1 Not Detected (NOT DETECT); Influenza A H1-2009 Not Detected (NOT DETECT); Influenza A H3 Not Detected (NOT DETECT); Influenza B Not Detected (NOT DETECT); Mycoplasma Pneumoniae Not Detected (NOT DETECT); Parainfluenza Virus Type 1 Not Detected (NOT DETECT); Parainfluenza Virus Type 2 Not Detected (NOT DETECT); Parainfluenza Virus Type 3 Not Detected (NOT DETECT); Parainfluenza Virus Type 4 Not Detected (NOT DETECT); Respiratory Syncytial Virus A Not Detected (NOT DETECT); Respiratory Syncytial Virus B Not Detected (NOT DETECT); SARS-COV-2 Not Detected (NOT DETECT)
--- NOTE | 2024-06-17 12:55 | PM.PN ---
Subjective Subjective: Patient did have episode of vomiting overnight. Continues to complain of myalgias. Tmax since admission 101.2 Fahrenheit. Seen with family ember at bedside. Vitals/I&O/Wt Last Vital Signs Temp 100.4 F H 06/17/24 11:17 Pulse 79 06/17/24 11:17 Resp 15 06/17/24 11:17 BP 98/59 06/17/24 11:17 Pulse Ox 100 06/17/24 11:17 O2 Del Method Room Air 06/17/24 11:17 06/16/24 06/17/24 06/17/24 22:59 06:59 14:59 Intake Total 2653.53 / 2653.53 220 / 2873.53 1300 / 1300 Output Total 600 / 600 Balance 2653.53 / 2653.53 -380 / 2273.53 1300 / 1300 Weight last 48 hrs Weight 96.473 kg Weight 96.479 kg Weight 88.451 kg Weight 88.451 kg Physical Exam Narrative: General: No acute distress, AO x3, uncomfortable due to myalgias HEENT: PERRLA, pupils bilaterally equal and reactive Chest: Normal vesicular breath sounds, no added sounds, equal good air entry bilaterally CVS: S1-S2 regular, no murmurs, no tachycardia, no gallops, no rubs Abdomen: Soft, nontender, no organomegaly, bowel sounds present, right flank pain Neuro: No focal deficits, no facial deformity, AO x3, power 5/5 in all limbs Quick SOFA Score: Respiratory Rate: 16 Blood Pressure: 98/59 [place] Coma Scale: 15 qSOFA Score: 1 If qSOFA score 2 or greater, continue: Blood Pressure Mean: 72 Bilirubin (mg/dl): 0.5 Platelets (x10?/ml): 222 Creatinine (mg/dl): 0.8 Evaluation: Current stage of sepsis: sepsis Sepsis stage criteria used: [facility] Sep-1 and Sepsis-3 Crystalloid fluids: 30 mL/kg crystalloid fluids ordered and initiated within 3 hours Blood cultures ordered: Yes Possible source: genitourinary Focused Exam: Vital signs: Temp Pulse Resp BP Pulse Ox O2 Del Method 06/17/24 11:17 100.4 F H 79 15 98/59 100 Room Air 06/17/24 07:56 16 06/17/24 07:10 99.8 F H 74 16 110/70 98 Room Air 06/17/24 06:00 72 06/17/24 04:00 101.0 F H 91 16 132/75 96 Room Air Date exam was performed: 06/17/24 Time exam was performed: 15:09 Sepsis Screen No Definite Risk 06/16/24 16:50 Respiratory Rate 16 breaths/min (12 - 18) 06/17/24 14:27 Blood Pressure 98/59 mmHg 06/17/24 11:17 [place] Coma Scale Score 15 06/16/24 18:53 Quick SOFA Score 1 06/17/24 12:58 SOFA Score: [place] Coma Scale Score 15 06/16/24 18:53 Blood Pressure Mean 72 mmHg 06/17/24 11:17 Total Bilirubin 0.5 mg/dL (0.15-1.2) 06/17/24 04:40 Platelet Count 222 10^3/cmm (157-399) 06/17/24 04:40 Creatinine 0.8 mg/dL (0.5-0.9) 06/17/24 04:40 SOFA Score 0 06/17/24 12:58 Data 06/17/24 04:40 06/17/24 04:40 Micro: Microbiology 06/16/24 15:10 Bacterial Antigens - Final Urine Kidney 06/16/24 14:05 Blood Culture - Preliminary Blood SPECIMEN COLLECTED 06/16/24 14:15 Blood Culture - Preliminary Blood SPECIMEN COLLECTED A&P Assessment and plan (1) Sepsis: SIRS: Tachycardic, Febrile, Leukocytosis Source: UTI/pyelonephritis End organ damage: Not present Lactic acid within normal limits Patient did eceive full 30 mL/kg BW. Continue with D5 NS with 20 mEq of potassium at 75 cc/h. Monitor blood pressures. Keep mean artery pressure 65 mmHg. Blood culture, urine culture, MRSA swab, procalcitonin, bacterial antigen. For now start patient on IV ceftriaxone empirically. De-escalate antibiotics as per culture results. (2) Nausea and vomiting: In setting of pyelonephritis. Clear liquid diet for now. Advance as tolerated. Protonix daily, Zofran as needed. (3) Pyelonephritis: As seen on CT abdomen/pelvis. Follow-up cultures. (4) High anion gap metabolic acidosis: In setting of dehydration from nausea and vomiting. Hydration as above. Recheck BMP in AM. (5) Seizure disorder: Gives history of witnessed seizure few months to a year ago. Has not had any seizure recently. For now we will hold off on any medication. Patient should follow-up as an outpatient with neurology. (6) Iron deficiency anemia: Appreciate iron panel. Will start on oral iron supplementation once patient is able to tolerate medications orally. (7) Contact with and (suspected) exposure to covid-19: COVID-19 PCR and respiratory viral panel negative. Plan Exposure to COVID-19: COVID-19 PCR negative. Monitor for symptoms for now. History of hepatitis C: Most recent viral load negative. History of syphilis: Most recent RPR titer from December is 1: 2. Will recheck. Check chlamydia, gonorrhea. Full code Full liquid diet Protonix for PUD prophylaxis Lovenox for DVT prophylaxis Plan for the day: Continue to follow-up cultures for now. Leukocytosis has resolved. Follow-up fever curve. If continues to remain febrile for next 24 hours we will broaden coverage to meropenem depending on culture results. Given significant myalgias we will check complete respiratory viral panel. COVID-19 negative yesterday. Follow-up on GC and chlamydia. Tylenol as needed for fever. Continue with full liquid diet. High anion gap metabolic acidosis has resolved. Continue with IV fluids for now. Attestations Medical Necessity Statement*: Requires further hospitalization for management of sepsis in setting of pyelonephritis Diagnoses Sepsis A41.9 Nausea and vomiting R11.2 Pyelonephritis N12 High anion gap metabolic acidosis E87.29 Seizure disorder G40.909 Iron deficiency anemia D50.9 Contact with and (suspected) exposure to covid-19 Z20.822
[2024-06-17] MEDS: water for injection-sterile 10 ML 240 ML (14:29)
[2024-06-17] MEDS: cefTRIAXone 1,000 mg SDV 1000 MG IVP (14:29)
[2024-06-17] MEDS: pantoprazole 40 mg SDV IVP (17:43)
[2024-06-17] MEDS: enoxaparin 40 mg/0.4 mL Syringe SUBCUT (17:46)
[2024-06-18] VITALS (13 sets, daily range): BP systolic 109–132; BP diastolic 54–80; PULSE 57–81; RESP 14–18; TEMP 36.6–39.3; O2SAT 96–100
[2024-06-18] MEDS: morphine 4 mg/mL SDV 1 mL 2 MG IVP ×2 (00:18→10:27)
[2024-06-18] MEDS: dextrose 5%-ns + KCl 20 20 MEQ/1,000 ML BAG 75 MEQ IV ×2 (00:18→15:21)
[2024-06-18 04:14] LABS: Basophils % 0.3 %; Eosinophils % 0.6 %; Hematocrit 26.6 % (36-47); Lymphocytes # 1.9 10^3/uL (0.8-4.8); Lymphocytes % 27.9 %; Mean Corpuscular HGB Conc 31.2 g/dL (30-55); Mean Corpuscular Hemoglobin 24.3 pg (27-33); Mean Platelet Volume 11.7 fL (7.4-10.4); Monocytes # 0.6 10^3/uL (0.2-0.9); Monocytes % 8.3 %; Neutrophils # 4.28 10^3/uL (1.8-7.7); Neutrophils % 62.3 %; Nucleated Red Blood Cells % 0 %; Platelet Count 218 10^3/cmm (157-399); Red Blood Count 3.41 10^6/uL (3.85-5.65); Red Cell Distribution Width 16.2 % (12.1-15.1); White Blood Count 6.87 10^3/uL (3.29-11.43)
[2024-06-18 04:44] LABS: Alanine Aminotransferase 7 U/L (0-33); Albumin Level 2.9 g/dL (3.5-5.2); Alkaline Phosphatase 99 U/L (35-105); Anion Gap 14.5 (5-19); Aspartate Amino Transferase 11 U/L (0-32); Blood Urea Nitrogen 3 mg/dL (6-20); Carbon Dioxide 21 mmol/L (22-29); Chloride 106 mmol/L (98-107); Creatinine Clr Calc Pharmacy 141.1735; Glucose 107 mg/dL (65-115); Osmolality Calculated 283 mOsm/kg (285-295); Potassium 3.5 mmol/L (3.5-5.1); Sodium 138 mmol/L (136-145); Total Bilirubin 0.2 mg/dL (0.15-1.2); Total Protein 5.9 g/dL (6.6-8.7)
[2024-06-18] MEDS: ondansetron 2 mg/ML SDV 2 mL 4 MG IVP ×2 (09:25→17:54)
[2024-06-18] MEDS: iron sucrose 200 MG in sodium chloride 0.9% (100 ml) 100 ML 220 MG IV (10:25)
--- NOTE | 2024-06-18 13:54 | P.PN_ITS ---
Subjective 2 Subjective: No acute vents overnight. Patient has remained hemodynamically stable. Fever curve improving. Tmax in last 24 hours 100.9 Fahrenheit. Patient has remained afebrile since midnight. Still complaining of nausea and vomiting on minimal intake. Complaining of dizziness on standing up. Vitals/I&O/Wt Last Vital Signs Temp 98.4 F 06/18/24 12:00 Pulse 64 06/18/24 12:00 Resp 16 06/18/24 10:27 BP 118/54 06/18/24 12:00 Pulse Ox 98 06/18/24 12:00 O2 Del Method Room Air 06/18/24 12:00 06/17/24 06/18/24 06/18/24 22:59 06:59 14:59 Intake Total 1240.00 / 2668.00 400 / 3068.00 230 / 230 Balance 1240.00 / 2668.00 400 / 3068.00 230 / 230 Weight last 48 hrs Weight 96.814 kg Weight 96.473 kg Weight 96.479 kg Weight 88.451 kg Physical Exam 2 Narrative: General: No acute distress, AO x3, more comfortable today, HEENT: PERRLA, pupils bilaterally equal and reactive Chest: Normal vesicular breath sounds, no added sounds, equal good air entry bilaterally CVS: S1-S2 regular, no murmurs, no tachycardia, no gallops, no rubs Abdomen: Soft, nontender, no organomegaly, bowel sounds present, right flank pain Neuro: No focal deficits, no facial deformity, AO x3, power 5/5 in all limbs Data 06/18/24 03:07 06/18/24 03:07 Micro: Microbiology 06/16/24 15:10 Urine Culture - Preliminary Urine,Clean Catch Gram Negative Rods 06/16/24 14:05 Blood Culture - Preliminary Blood NEGATIVE TO DATE 06/16/24 14:15 Blood Culture - Preliminary Blood NEGATIVE TO DATE 06/16/24 15:10 Bacterial Antigens - Final Urine Kidney A&P Assessment and plan (1) Sepsis: SIRS: Tachycardic, Febrile, Leukocytosis Source: UTI/pyelonephritis End organ damage: Not present Lactic acid within normal limits Patient did eceive full 30 mL/kg BW. Continue with D5 NS with 20 mEq of potassium at 75 cc/h. Monitor blood pressures. Keep mean artery pressure 65 mmHg. Follow-up blood culture, urine culture. Urine culture growing gram-negative rods for now. Appreciate bacterial antigen and procalcitonin. Continue with IV ceftriaxone for now. De-escalate antibiotics as per culture results. (2) Nausea and vomiting: Along with dizziness. Most likely in setting of pyelonephritis. Patient's fever curve is improving, patient has no leukocytosis anymore. As she persistently has nausea and vomiting we will plan to rule out other causes. Will check gastric emptying studies, CT head to rule out posterior circulation stroke. Continue with full liquid diet for now. Encouraged patient to consume more. Start on Carafate before meals and at bedtime. Start on meclizine 25 mg 3 times daily Protonix daily, Zofran as needed. (3) Pyelonephritis: As seen on CT abdomen/pelvis. Follow-up cultures. (4) High anion gap metabolic acidosis: In setting of dehydration from nausea and vomiting. Hydration as above. Resolved. (5) Seizure disorder: Gives history of witnessed seizure few months to a year ago. Has not had any seizure recently. For now we will hold off on any medication. Patient should follow-up as an outpatient with neurology. (6) Iron deficiency anemia: Appreciate iron panel. Will start on oral iron supplementation once patient is able to tolerate medications orally. (7) Contact with and (suspected) exposure to covid-19: COVID-19 PCR and respiratory viral panel negative. Plan Exposure to COVID-19: Respiratory viral panel negative. Monitor for symptoms for now. History of hepatitis C: Most recent viral load negative. History of syphilis: Most recent RPR titer from December is 1: 2. Will recheck. Check chlamydia, gonorrhea. Dizziness: Checking CT head as above. Check orthostatic. Start on Antivert 3 times daily for now. Full code Full liquid diet Protonix for PUD prophylaxis Lovenox for DVT prophylaxis Patient's care discussed in detail with patient and father over the phone. All the questions were answered. Attestations 2 Medical Necessity Statement*: Requires further hospitalization for management of pyelonephritis, sepsis, persistent nausea and vomiting Diagnoses Sepsis A41.9 Nausea and vomiting R11.2 Pyelonephritis N12 High anion gap metabolic acidosis E87.29 Seizure disorder G40.909 Iron deficiency anemia D50.9 Contact with and (suspected) exposure to covid-19 Z20.822
--- NOTE | 2024-06-18 13:55 | CTR_ITS ---
PROCEDURE INFORMATION: Exam: CT Head Without Contrast Exam date and time: 06/18/2024 2:09 PM Age: 23 years old Clinical indication: Dizziness; Additional info: Persistent dizziness along with nausea, concerns for posteri TECHNIQUE: Imaging protocol: Computed tomography of the head without contrast. Radiation optimization: All CT scans at this facility use at least one of these dose optimization techniques: automated exposure control; mA and/or kV adjustment per patient size (includes targeted exams where dose is matched to clinical indication); or iterative reconstruction. COMPARISON: No relevant prior studies available. RADIATION DOSE METRICS: Total DLP (mGy-cm): 1022.38 FINDINGS: Brain: Normal. No hemorrhage. Unremarkable white matter. No mass effect. Cerebral ventricles: No ventriculomegaly. Paranasal sinuses: Visualized sinuses are unremarkable. No fluid levels. Mastoid air cells: Visualized mastoid air cells are well aerated. Bones: Unremarkable. No acute fracture. Soft tissues: There is a right parietal 1.2 [address] subcutaneous sebaceous cyst. CT/CT head wo con* [id number] IMPRESSION: No large territorial infarct or intracranial bleed.
[2024-06-18] MEDS: water for injection-sterile 10 ML 240 ML (15:20)
[2024-06-18] MEDS: cefTRIAXone 1,000 mg SDV 1000 MG IVP (15:20)
[2024-06-18] MEDS: meclizine 25 mg tablet PO (15:20)
[2024-06-18 15:25] LABS: Chlamydia Trachomatis RNA TMA NOT DETECTED (NOT DETECTED); Neisseria Gonorrhoeae RNA, TMA NOT DETECTED (NOT DETECTED)
[2024-06-18 16:09] LABS: Trichomonas Vaginalis RNA NOT DETECTED (NOT DETECTED)
[2024-06-18] MEDS: pantoprazole 40 mg SDV IVP (17:54)
[2024-06-18] MEDS: enoxaparin 40 mg/0.4 mL Syringe SUBCUT (17:54)
[2024-06-18] MEDS: sucralfate 1 gm/10 mL Oral Liq UDC PO (17:54)
[2024-06-18] MEDS: acetaminophen 1,000 MG/100 ML PIGGYBACK 400 MG IV (20:39)
[2024-06-18] MEDS: morphine 4 mg/mL SDV 1 mL 1 MG IVP (20:39)
[2024-06-18] MEDS: meropenem 1,000 mg SDV 1000 MG IVP (22:35)
[2024-06-19] VITALS (11 sets, daily range): BP systolic 104–142; BP diastolic 58–90; PULSE 45–91; RESP 14–22; TEMP 36.5–36.8; O2SAT 97–100
[2024-06-19] MEDS: ondansetron 2 mg/ML SDV 2 mL 4 MG IVP ×3 (01:13→22:52)
[2024-06-19] MEDS: morphine 4 mg/mL SDV 1 mL 1 MG IVP ×4 (01:14→22:51)
--- NOTE | 2024-06-19 01:14 | P.CONIM_ITS ---
Providers/Reason For Consult 2 Consulting Physician/Specialty*: Savi Solis MD/ Infectious Disease Reason for Consult*: Fever, pyelopnephritis Requesting Physician: Bright Meyer MD Attending Physician: Bright Meyer MD History of Present Illness History of Present Illness Shad Khan is a 23 year old female with a past medical history of treated hepatitis C, treated syphilis, last RPR titer 1: 2 from December 2023 currently admitted to the hospital with 4 to 5 days of fever chills dysuria and diarrhea. Patient states that her symptoms started about 5 days prior to admission. Initially developed diarrhea, multiple episodes every day associated with abdominal cramping. Thereafter she developed fever with chills at home. She has a history of recurrent urinary tract infections which usually happens around her menstrual cycle. At the time of onset she also started experiencing dysuria with burning micturition, increased urinary frequency. Typically patient takes cranberry pills and increases her water intake which appears to take care of for urinary tract infection, however at this time she has not yet had significant relief. Patient typically uses tampons or pads for her menstrual cycle. No history of retained tampons. States that she has skipped her cycle this month. Beta-hCG from 822 was negative. She does not have a past history of pyelonephritis or other complications from UTI. As far as she is aware she does not have any drug-resistant UTI in the past. Patient has a history of in September 2023. She is not currently breast-feeding and has not done so in the past. No history of STDs other than syphilis. HIV screen negative from 2022. No current history of IV drug use. Denies any complains of chest pain dyspnea palpitations syncope. Denies any abnormal vaginal discharge. Her most bothersome persisting symptom right now is nausea and multiple episodes of vomiting. Does not recall eating out prior to onset of symptoms. Denies eating any unpasteurized products. She has had fever up to 102.8 Fahrenheit since admission on June 16. Review of Systems 2 General: Reports: 10 or more systems reviewed and unremarkable except in HPI and below Const: Denies: fever(s), chills or body aches Eyes: Denies: change in vision, blurry vision or photophobia ENMT: Reports: hoarseness; Denies: throat pain, enlarged tonsils, odynophagia or nasal congestion Card: Denies: chest pain, palpitations, irregular heart rhythm, edema, swelling of feet/ankles, lightheadedness, pre-syncope, dyspnea on exertion or orthopnea Resp: Denies: dyspnea, productive cough, non-productive cough, wheezing, stridor, pain on inspiration, change in phlegm color, hemoptysis or chest congestion GI: Denies: abdominal pain, nausea, vomiting, hematemesis, coffee ground emesis, dysphagia, heartburn, diarrhea, constipation, GI cramping, change in stool character, hematochezia or melena : Denies: flank pain, difficulty voiding, dysuria, urinary frequency, urinary urgency, urinary hesitancy or hematuria Musc: Denies: neck pain, back pain, extremity pain, joint swelling, joint warmth or deformity Neuro: Denies: headache(s), numbness in extremities, weakness in extremities, sensory changes, difficulty walking, frequent falls, dizziness, vertigo, behavioral changes, Slurred speech present or seizure-like activity Psych: Denies: anxiety, depression, suicidal ideation or homicidal ideation Endo: Denies: polyuria, polydipsia, tired all the time, cold intolerance or hot flashes Samuel/Lymph: Denies: easy bruising or easy bleeding Medications/Allergies Home Medications Medication Instructions Recorded Confirmed Last Taken Type No Known Home Medications 06/17/24 06/17/24 Unknown History Allergies Allergy/AdvReac Type Severity Reaction Status Date / Time diphenhydramine Allergy ADR-Cramping Verified 01/19/24 13:39 [From Benadryl] of the Muscles benodryl Allergy restless Uncoded 01/19/24 13:39 leg Current Medications Generic Name Dose Route Start Last Admin Trade Name Freq PRN Reason Stop Dose Admin Acetaminophen 650 mg 06/16/24 17:46 06/16/24 20:57 Acetaminophen 325 Mg Tablet PO 650 mg Q6H PRN Administration Mild/Mod Pain Or Temp >/= 101 Enoxaparin Sodium 40 mg 06/16/24 17:46 06/18/24 17:54 Enoxaparin 40 Mg/0.4 Ml Syringe SUBCUT 40 mg Q24H JASVIR Administration Potassium Chloride/Dextrose/Sod Cl 20 meq in 1,000 mls @ 75 mls/hr 06/16/24 17:30 06/18/24 15:21 Dextrose 5%-Ns + Kcl 20 IV 75 mls/hr .[id number] JASVIR Administration Iron Sucrose 200 mg/ Sodium 110 mls @ 220 mls/hr 06/18/24 10:00 06/18/24 11:06 Chloride IV 06/22/24 10:29 Infused Q24H JASVIR Infusion Meclizine HCl 25 mg 06/18/24 15:00 06/18/24 20:32 Meclizine 25 Mg Tablet PO Not Given TID JASVIR Meropenem 1,000 mg 06/18/24 22:15 06/18/24 22:35 Meropenem 1,000 Mg Sdv IVP 1,000 mg Q8H JASVIR Administration Protocol Morphine Sulfate 1 mg 06/18/24 19:55 06/18/24 20:39 Morphine 4 Mg/Ml Sdv 1 Ml IVP 1 mg Q4H PRN Administration SEVERE PAIN Ondansetron HCl 4 mg 06/16/24 17:46 06/18/24 17:54 Ondansetron 2 Mg/Ml Sdv 2 Ml IVP 4 mg Q6H PRN Administration NAUSEA AND VOMITING Pantoprazole Sodium 40 mg 06/16/24 17:46 06/18/24 17:54 Pantoprazole 40 Mg Sdv IVP 40 mg Q24H JASVIR Administration Sucralfate 1 gm 06/18/24 17:00 06/18/24 20:32 Sucralfate 1 Gm/10 Ml Oral Liq Udc PO Not Given AC&BEDTIME JASVIR PFSH Acute 2 PFSH: Medical History Seizure disorder Hepatitis C antibody positive in blood Syphilis Positive RPR test Supervision of other normal delivery delivered Surgical History History of delivery Family History Denies family history of Colon cancer Ovarian cancer Diabetes Heart disease Hyperlipidemia Breast cancer Hypertension Uterine cancer Thyroid disease Stroke Female Reproductive History: Date of last menstrual period: 04/25/24 Vitals/I&O/Wt Last Vital Signs Temp 97.7 F 06/19/24 00:00 Pulse 52 L 06/19/24 00:00 Resp 14 06/19/24 00:00 BP 119/71 06/19/24 00:00 Pulse Ox 97 06/19/24 00:00 O2 Del Method Room Air 06/19/24 00:00 06/18/24 06/18/24 06/19/24 14:59 22:59 06:59 Intake Total 1230 / 1230 230 / 1460 Balance 1230 / 1230 230 / 1460 Weight last 48 hrs Weight 96.814 kg Weight 96.473 kg Weight 96.479 kg Physical Exam 2 Narrative: General: No acute distress, AO x3 HEENT: PERRLA, pupils bilaterally equal and reactive, pallors not present Chest: Normal vesicular breath sounds, no added sounds, equal good air entry bilaterally CVS: S1-S2 regular, no murmurs, no tachycardia, no gallops, no rubs Abdomen: Soft, nontender, no organomegaly, bowel sounds present Neuro: No focal deficits, no facial deformity, AO x3, power 5/5 in all limbs Data 06/18/24 03:07 06/18/24 03:07 Micro: Microbiology 06/18/24 21:36 Blood Culture - Preliminary Blood SPECIMEN COLLECTED 06/18/24 21:32 Blood Culture - Preliminary Blood SPECIMEN COLLECTED 06/16/24 15:10 Urine Culture - Preliminary Urine,Clean Catch Gram Negative Rods Other data: Radiology Impressions Chest X-Ray 06/16/24 13:42 Impression: Negative chest. Abdomen/Pelvis CT 06/16/24 13:48 IMPRESSION: 1. Mild RIGHT renal enlargement with perinephric stranding and proximal periureteral stranding. No obstructing stone identified. Findings are most likely due to acute pyelonephritis. 2. Normal appendix. 3. No GI tract obstruction. 4. Hepatic steatosis. Head CT 06/18/24 13:55 IMPRESSION: No large territorial infarct or intracranial bleed. Laboratory Results WBC 6.87 10^3/uL (3.29-11.43) 06/18/24 03:07 RBC 3.41 10^6/uL (3.85-5.65) L 06/18/24 03:07 Hgb 8.30 g/dL (11.27-16.99) L 06/18/24 03:07 Hct 26.6 % (36-47) L 06/18/24 03:07 MCV 78.0 fl (85-98) L 06/18/24 03:07 MCH 24.3 pg (27-33) L 06/18/24 03:07 MCHC 31.2 g/dL (30-55) 06/18/24 03:07 RDW 16.2 % (12.1-15.1) H 06/18/24 03:07 Plt Count 218 10^3/cmm (157-399) 06/18/24 03:07 MPV 11.7 fL (7.4-10.4) H 06/18/24 03:07 Neut % (Auto) 62.3 % 06/18/24 03:07 Lymph % (Auto) 27.9 % 06/18/24 03:07 [place] % (Auto) 8.3 % 06/18/24 03:07 Eos % (Auto) 0.6 % 06/18/24 03:07 Baso % (Auto) 0.3 % 06/18/24 03:07 Neut # (Auto) 4.28 10^3/uL (1.8-7.7) 06/18/24 03:07 Lymph # (Auto) 1.9 10^3/uL (0.8-4.8) 06/18/24 03:07 [place] # (Auto) 0.6 10^3/uL (0.2-0.9) 06/18/24 03:07 Eos # (Auto) 0.0 10^3/uL (0.0-0.8) 06/18/24 03:07 Baso # (Auto) 0.0 10^3/uL (0.0-0.1) 06/18/24 03:07 Nucleated RBC % (auto) 0 % 06/18/24 03:07 Nucleated RBCs # 0.0 /100WBC 06/18/24 03:07 Sodium 138 mmol/L (136-145) 06/18/24 03:07 Potassium 3.5 mmol/L (3.5-5.1) 06/18/24 03:07 Chloride 106 mmol/L (98-107) 06/18/24 03:07 Carbon Dioxide 21 mmol/L (22-29) L 06/18/24 03:07 Anion Gap 14.5 (5-19) 06/18/24 03:07 BUN 3 mg/dL (6-20) L 06/18/24 03:07 Creatinine 0.7 mg/dL (0.5-0.9) 06/18/24 03:07 GFR Calculation 102.0 mL/min (90-130) 06/18/24 03:07 Glucose 107 mg/dL (65-115) 06/18/24 03:07 Calculated Osmolality 283 mOsm/kg (285-295) L 06/18/24 03:07 Lactic Acid 1.8 mmol/L (0.5-2.2) 06/16/24 14:15 Calcium 8.0 mg/dL (8.5-10.5) L 06/18/24 03:07 Phosphorus 2.0 mg/dL (2.5-4.5) L 06/17/24 04:40 Magnesium 2.1 mg/dL (1.7-2.3) 06/17/24 04:40 Iron 12 ug/dL (37-145) L 06/16/24 14:15 TIBC 351 mcg/dl 06/16/24 14:15 % Saturation 3.4 % (20-50) L 06/16/24 14:15 Unsat Iron Binding 339 ug/dL (112-347) 06/16/24 14:15 Total Bilirubin 0.2 mg/dL (0.15-1.2) 06/18/24 03:07 AST 11 U/L (0-32) 06/18/24 03:07 ALT 7 U/L (0-33) 06/18/24 03:07 Alkaline Phosphatase 99 U/L (35-105) 06/18/24 03:07 Total Protein 5.9 g/dL (6.6-8.7) L 06/18/24 03:07 Albumin 2.9 g/dL (3.5-5.2) L 06/18/24 03:07 Globulin 3.0 g/dL (1.3-4.6) 06/18/24 03:07 Lipase 9 U/L (13-60) L 06/16/24 14:15 Vitamin B12 441 pg/mL (232-1245) 06/16/24 14:15 Folate 5.7 ng/mL (4.8-37.3) 06/17/24 04:40 Procalcitonin 1.19 ng/mL (0-0.5) H 06/17/24 04:40 HCG, Qual Negative (Negative) 06/16/24 14:05 Urine Color Yellow (Yellow) 06/16/24 15:10 Urine Appearance Cloudy (CLEAR) A 06/16/24 15:10 Urine pH 7.0 (5-7) 06/16/24 15:10 Ur Specific [place] 1.011 (1.005-1.030) 06/16/24 15:10 Urine Protein 2+ (Negative) A 06/16/24 15:10 Urine Glucose (UA) Negative (Normal) 06/16/24 15:10 Urine Ketones 2+ (Negative) H 06/16/24 15:10 Urine Blood 1+ (Negative) A 06/16/24 15:10 Urine Nitrate Negative (Negative) 06/16/24 15:10 Urine Bilirubin Negative (Negative) 06/16/24 15:10 Urine Urobilinogen 1.0 mg/dL (Negative) 06/16/24 15:10 Ur Leukocyte Esterase 2+ (Negative) A 06/16/24 15:10 Urine RBC 0-2 /hpf (0-2) 06/16/24 15:10 Urine WBC >100 /hpf (0-5) H 06/16/24 15:10 Ur Squamous Epith Cells 6-10 /hpf (0-5) 06/16/24 15:10 Amorphous Sediment Not Reportable 06/16/24 15:10 Urine Bacteria 2+ /hpf (NONE) H 06/16/24 15:10 Hyaline Casts 1.21 /lpf 06/16/24 15:10 Adenovirus (PCR) Not detected (NOT DETECT) 06/17/24 10:55 C. pneumoniae DNA (PCR) Not detected (NOT DETECT) 06/17/24 10:55 C.trachomatis RNA (TMA) Not detected (NOT DETECTED) 06/16/24 15:10 Chlamydia/GC Comment See note 06/16/24 15:10 Coronavirus 229E (PCR) Not detected (NOT DETECT) 06/17/24 10:55 Human Metapneumovir PCR Not detected (NOT DETECT) 06/17/24 10:55 Influenza A (H1) PCR Not detected (NOT DETECT) 06/17/24 10:55 Influ A (H1/09) PCR Not detected (NOT DETECT) 06/17/24 10:55 Influenza A (H3) PCR Not detected (NOT DETECT) 06/17/24 10:55 Influenza Type A (PCR) Not detected (NOT DETECT) 06/17/24 10:55 Influenza Type B (PCR) Not detected (NOT DETECT) 06/17/24 10:55 M. pneumoniae (PCR) Not detected (NOT DETECT) 06/17/24 10:55 N.gonorrhoeae RNA (TMA) Not detected (NOT DETECTED) 06/16/24 15:10 Parainfluenza 1 (PCR) Not detected (NOT DETECT) 06/17/24 10:55 Parainfluenza 2 (PCR) Not detected (NOT DETECT) 06/17/24 10:55 Parainfluenza 3 (PCR) Not detected (NOT DETECT) 06/17/24 10:55 Parainfluenza 4 (PCR) Not detected (NOT DETECT) 06/17/24 10:55 RSV Type A (PCR) Not detected (NOT DETECT) 06/17/24 10:55 RSV Type B (PCR) Not detected (NOT DETECT) 06/17/24 10:55 Entero/Rhino (PCR) Not detected (NOT DETECT) 06/17/24 10:55 SARS-CoV-2 (PCR) Not detected (NOT DETECT) 06/17/24 10:55 T. vaginalis Amp RNA Not detected (NOT DETECTED) 06/16/24 15:10 A&P Assessment and plan (1) Pyelonephritis: 23-year-old lady presenting with chief complaints of fever chills diarrhea dysuria. UA positive CT of the abdomen and pelvis showing right renal enlargement with perinephric stranding Overall findings likely consistent with pyelonephritis. Urine culture showing gram-negative rods. Pending further identification Continues to have fever up to 102.8 Fahrenheit Blood culture thus far negative to date. Patient denies any recent antibiotic use. Discontinue ceftriaxone and broaden empiric antibiotic coverage to meropenem to include potentially resistant gram-negative organisms. Await urine culture results. Repeat blood cultures. Continues to have diarrhea, CT abdomen without any signs of colitis. Will check C. difficile PCR for further evaluation. No obvious urinary obstruction on recent CT abdomen, would repeat imaging if no improvement in symptoms (2) Persistent fever: Suspect that this is related to pyelonephritis. Other significant negative workup includes negative respiratory viral panel, negative blood cultures to date, negative urine GC chlamydia NAAT, pending RPR given history of syphilis. History of treated hep C, last viral load from December 2023 was undetectable. Check C. difficile PCR as above. Tick panel, though lower suspicion right now given normal white blood cell count platelets, no rash, normal LFTs. Check HIV screen Broaden antibiotics from ceftriaxone to meropenem and assess for response. Consult Attestations 2 Medical Necessity Statement: Per admitting Coding Level of Care Code Acute Code for Chg Fwd Moderate MDM includes number and complexity of problems actively addressed during encounter, amount and/or complexity of data reviewed/ordered and described risk of complication, morbidity or mortality of management as documented Diagnoses Pyelonephritis N12 Persistent fever R50.9
--- NOTE | 2024-06-19 01:23 | ECG_ITS ---
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 Measurements Intervals [place] Rate: 47 P: 59 NE: 169 QRS: 49 QRSD: 90 T: 30 QT: 496 QTc: 439 Interpretive Statements SINUS BRADYCARDIA No previous ECG available for comparison Electronically Signed On 06-19-2024 20:39:17 CDT by Steve Contreras M.D. [id number]
[2024-06-19 04:20] LABS: Basophils % 0.6 %; Eosinophils # 0.1 10^3/uL (0.0-0.8); Eosinophils % 2.1 %; Lymphocytes # 1.9 10^3/uL (0.8-4.8); Lymphocytes % 38.5 %; Mean Corpuscular HGB Conc 31.1 g/dL (30-55); Mean Corpuscular Hemoglobin 24.5 pg (27-33); Mean Corpuscular Volume 78.7 fl (85-98); Mean Platelet Volume 11.3 fL (7.4-10.4); Monocytes # 0.3 10^3/uL (0.2-0.9); Monocytes % 6.4 %; Neutrophils % 51.8 %; Nucleated Red Blood Cells % 0 %; Platelet Count 233 10^3/cmm (157-399); Red Blood Count 3.43 10^6/uL (3.85-5.65); Red Cell Distribution Width 16.1 % (12.1-15.1); White Blood Count 4.83 10^3/uL (3.29-11.43)
[2024-06-19] MEDS: dextrose 5%-ns + KCl 20 20 MEQ/1,000 ML BAG 75 MEQ IV ×2 (04:28→14:58)
[2024-06-19 04:45] LABS: Troponin T (5th) Once < 6 ng/L (0-10)
[2024-06-19 04:49] LABS: HIV 1 & 2 Antibody Non-Reactive (Non-Reactiv); HIV 1 & 2 Antigen Non-Reactive (Non-Reactiv)
[2024-06-19 04:54] LABS: Alanine Aminotransferase 8 U/L (0-33); Albumin Level 3.1 g/dL (3.5-5.2); Alkaline Phosphatase 67 U/L (35-105); Anion Gap 14.6 (5-19); Aspartate Amino Transferase 10 U/L (0-32); Blood Urea Nitrogen 2 mg/dL (6-20); Calcium 8.1 mg/dL (8.5-10.5); Carbon Dioxide 23 mmol/L (22-29); Chloride 107 mmol/L (98-107); Creatinine Clr Calc Pharmacy 161.9573; Globulin 2.3 g/dL (1.3-4.6); Glomerular Filtration Rate 121.8 mL/min (90-130); Glucose 93 mg/dL (65-115); Osmolality Calculated 288 mOsm/kg (285-295); Potassium 3.6 mmol/L (3.5-5.1); Sodium 141 mmol/L (136-145); Total Bilirubin 0.2 mg/dL (0.15-1.2); Total Protein 5.4 g/dL (6.6-8.7)
[2024-06-19 05:06] LABS: C.Diff PCR (Lab) NEGATIVE (Negative)
[2024-06-19] MEDS: meropenem 1,000 mg SDV 1000 MG IVP ×3 (06:03→22:55)
--- NOTE | 2024-06-19 06:51 | USR_ITS ---
PROCEDURE INFORMATION: Exam: US Retroperitoneal, Complete, Kidneys and Bladder Exam date and time: 06/19/2024 8:52 AM Age: 23 years old Clinical indication: Condition or disease; Kidney or ureter condition; Other: Pyelonephritis; Additional info: Assess for hydronephrosis, known right pyelonephritis with persistent fever- assess for TECHNIQUE: Imaging protocol: Real-time ultrasound of the retroperitoneum with image documentation. Complete exam focused on the bilateral kidneys and urinary bladder. COMPARISON: US OB >= 14 weeks fetus [id number] 06/02/2023 10:27 AM FINDINGS: Right kidney: Normal. No stones. No hydronephrosis. Left kidney: Normal. No stones. No hydronephrosis. Urinary bladder: Unremarkable. US/US renal BI* [id number] IMPRESSION: Unremarkable kidneys and bladder.
--- NOTE | 2024-06-19 07:02 | USCV_ITS ---
Shad Khan Age: 23 Gender: F : 2000 Exam Date: 06/19/2024 09:31 Ordering Phys: Savi Solis MD Technologist: Maximo Palomo Exam Location: [facility] [place] Indication: bradycardia BP: 110 / 58 HR: 53 Rhythm: Sinus Technical Quality: Adequate MEASUREMENTS (Male / Female) Normal Values 2D ECHO LV Diastolic Diameter PLAX 4.1 cm 4.2 - 5.9 / 3.9 - 5.3 cm IVS Diastolic Thickness 1.1 cm 0.6 - 1.0 / 0.6 - 0.9 cm IVS Systolic Thickness 1.4 cm LVPW Diastolic Thickness 1.6 cm 0.6 - 1.0 / 0.6 - 0.9 cm LVPW Systolic Thickness 2.2 cm LVOT Diameter 2.0 cm LV Ejection Fraction 2D Teich 66.0 % LV Ejection Fraction MOD 4C 63.0 % LV Ejection Fraction MOD 2C 70.8 % LV Ejection Fraction 2C AL 71.3 % LA Diameter 3.1 cm IVC Diameter 1.6 cm M-MODE LA Ao Ratio MM 1.5 AV Cusp Separation MM 2.0 cm DOPPLER AV Peak Velocity 150.0 cm/s LVOT Peak Velocity 96.0 cm/s AV Area Cont Eq vti 2.1 cm squared AV Area Cont Eq pk 2.0 cm squared MV Peak Velocity 149.0 cm/s MV Area PHT 5.1 cm squared Mitral E to A Ratio 2.9 TR Peak Velocity 347.0 cm/s TR Peak Gradient 48.2 mmHg TR Mean Velocity 220.0 cm/s TR Mean Gradient 23.5 mmHg TR Velocity Time Integral 99.8 cm PV Peak Velocity 106.7 cm/s RV Ejection Time 0.4 s FINDINGS Left Ventricle Normal left ventricular size and systolic function, EF 63%.no regional wall motion abnormalities. Right Ventricle The right ventricle is normal in size and function. Right Atrium The right atrium is normal in size. Left Atrium Normal left atrial size. Mitral Valve No gross abnormalities noted Aortic Valve No gross abnormalities noted Tricuspid Valve Mild tricuspid valve regurgitation. Pulmonic Valve Mild pulmonary valve regurgitation. Pericardium Normal pericardium without effusion. Aorta Normal ascending aorta dimension. IVC Normal inferior vena cava. CONCLUSIONS Normal left ventricular size and systolic function, EF 63%.no regional wall motion abnormalities. Normal cardiac chamber sizes Mild tricuspid valve regurgitation. Mild pulmonary valve regurgitation. Mild pulmonary hypertension, estimated pulmonary artery peak systolic pressure 51 mmHg There is no pericardial effusion. There are no intracardiac masses. No similar previous studies are available for comparison Dr Steve Contreras MD FACC (Electronically Signed) Final Date: 19 June 2024 13:15 S
[2024-06-19 07:21] LABS: Magnesium 1.9 mg/dL (1.7-2.3)
[2024-06-19 07:30] LABS: Thyroid Stimulating Hormone 3.87 uIU/mL (0.27-4.20)
[2024-06-19] MEDS: acetaminophen 325 mg Tablet 650 MG PO (11:57)
[2024-06-19] MEDS: sucralfate 1 gm/10 mL Oral Liq UDC PO (11:57)
--- NOTE | 2024-06-19 13:16 | P.PN_ITS ---
Subjective 2 Subjective: Overnight patient had 1 more episode of fever up to 102 Fahrenheit. Patient's oral intake has been improving. As per her she has less nausea and vomiting. Was able to tolerate pudding earlier in the day. Denies any headache. Complaining of dizziness on standing up. Vitals/I&O/Wt Last Vital Signs Temp 98.3 F 06/19/24 12:00 Pulse 61 06/19/24 12:00 Resp 22 H 06/19/24 12:00 BP 120/75 06/19/24 12:00 Pulse Ox 99 06/19/24 12:00 O2 Del Method Room Air 06/19/24 12:00 06/18/24 06/19/24 06/19/24 22:59 06:59 14:59 Intake Total 230 / 1460 983.75 / 2443.75 Balance 230 / 1460 983.75 / 2443.75 Weight last 48 hrs Weight 93.667 kg Weight 93.44 kg Weight 96.814 kg Physical Exam 2 Narrative: General: No acute distress, AO x3, more comfortable today, HEENT: PERRLA, pupils bilaterally equal and reactive Chest: Normal vesicular breath sounds, no added sounds, equal good air entry bilaterally CVS: S1-S2 regular, no murmurs, no tachycardia, no gallops, no rubs Abdomen: Soft, nontender, no organomegaly, bowel sounds present, right flank pain Neuro: No focal deficits, no facial deformity, AO x3, power 5/5 in all limbs Data 06/19/24 03:51 06/19/24 03:51 Micro: Microbiology 06/16/24 15:10 Urine Culture - Final Urine,Clean Catch Escherichia coli 06/18/24 21:36 Blood Culture - Preliminary Blood SPECIMEN COLLECTED 06/18/24 21:32 Blood Culture - Preliminary Blood SPECIMEN COLLECTED A&P Assessment and plan (1) Sepsis: SIRS: Tachycardic, Febrile, Leukocytosis Source: UTI/pyelonephritis End organ damage: Not present Lactic acid within normal limits Patient did eceive full 30 mL/kg BW. Continue with D5 NS with 20 mEq of potassium at 75 cc/h. Monitor blood pressures. Keep mean artery pressure 65 mmHg. Follow-up blood culture. Urine culture growing E. coli today. Not ESBL. Appreciate bacterial antigen and procalcitonin. Appreciate ID recommendations. Given persistent fever and symptoms switch to IV meropenem. For now we will continue. (2) Pyelonephritis: Concern for right pelvis enlargement with perinephric stranding on CT abdomen/pelvis. Ultrasound as per ID did not show any hydronephrosis. Given persistent fevers we will recheck CT abdomen pelvis with contrast. Will also help for further evaluation of persistent nausea and vomiting. C. difficile negative. Follow-up blood cultures. (3) Persistent fever: Suspect that this is related to pyelonephritis. Other significant negative workup includes negative respiratory viral panel, negative blood cultures to date, negative urine GC chlamydia NAAT, pending RPR given history of syphilis. History of treated hep C, last viral load from December 2023 was undetectable. Check C. difficile PCR as above. Tick panel, though lower suspicion right now given normal white blood cell count platelets, no rash, normal LFTs. Negative HIV. Antibiotics as above. (4) Nausea and vomiting: Along with dizziness. Most likely in setting of pyelonephritis. Patient's fever curve is improving, patient has no leukocytosis anymore. As she persistently has nausea and vomiting we will plan to rule out other causes. Will check gastric emptying studies. CT head negative for acute concerns. CT abdomen pelvis with contrast as above. Continue with full liquid diet for now. Encouraged patient to consume more. Continue with Protonix. Patient refusing Carafate. Will stop. Change meclizine to 25 mg 3 times daily as needed. (5) High anion gap metabolic acidosis: In setting of dehydration from nausea and vomiting. Hydration as above. Resolved. (6) Seizure disorder: Gives history of witnessed seizure few months to a year ago. Has not had any seizure recently. For now we will hold off on any medication. Patient should follow-up as an outpatient with neurology. (7) Iron deficiency anemia: Appreciate iron panel. Will start on oral iron supplementation once patient is able to tolerate medications orally. Holding off on iron supplementation given episode of bradycardia. (8) Contact with and (suspected) exposure to covid-19: COVID-19 PCR and respiratory viral panel negative. (9) Bradycardia: Plan Bradycardia: Since 06/18. Could be in setting of Venofer. Rare complication. Continue telemetry. Appreciate EKG. Patient is on high-dose of Zofran and Reglan. Continue to monitor EKG daily to monitor for QTc. Appreciate echocardiogram for a normal EF, mild pulmonary hypertension. Fall precaution. History of hepatitis C: Treated. Most recent viral load negative. History of syphilis: Most recent RPR titer from December is 1: 2. Repeat pending. Negative chlamydia, gonorrhea. Dizziness: CT head negative for acute nighty. Orthostatic negative. Out of bed to chair. Antivert 3 times daily as needed. Full code Full liquid diet Protonix for PUD prophylaxis Lovenox for DVT prophylaxis Patient's care discussed in detail with patient and father over the phone. All the questions were answered. Attestations 2 Medical Necessity Statement*: Requires further hospitalization for management of sepsis in setting of pyelonephritis, persistent fever, nausea and vomiting and bradycardia Diagnoses Sepsis A41.9 Pyelonephritis N12 Persistent fever R50.9 Nausea and vomiting R11.2 High anion gap metabolic acidosis E87.29 Seizure disorder G40.909 Iron deficiency anemia D50.9 Contact with and (suspected) exposure to covid-19 Z20.822 Bradycardia R00.1
--- NOTE | 2024-06-19 15:29 | ECG_ITS ---
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 Measurements Intervals [place] Rate: 44 P: 55 GA: 163 QRS: 33 QRSD: 86 T: 17 QT: 446 QTc: 384 Interpretive Statements SINUS BRADYCARDIA Compared to ECG 06/19/2024 04:56:22 No significant changes Electronically Signed On 06-19-2024 20:39:51 CDT by Steve Contreras M.D. [id number]
--- NOTE | 2024-06-19 15:42 | CTR_ITS ---
PROCEDURE INFORMATION: Exam: CTA Chest With Contrast Exam date and time: 06/19/2024 3:34 PM Age: 23 years old Clinical indication: Abdominal tenderness; Dyspnea; Additional info: Elevated pa pressure, R/O pe TECHNIQUE: Imaging protocol: Computed tomographic angiography of the chest with contrast. Exam focused on the arteries. 3D rendering (Not supervised by radiologist): MIP and/or 3D reconstructed images were created by the technologist. Radiation optimization: All CT scans at this facility use at least one of these dose optimization techniques: automated exposure control; mA and/or kV adjustment per patient size (includes targeted exams where dose is matched to clinical indication); or iterative reconstruction. Contrast material: OMNIPAQUE 350; Contrast volume: 100 ml; Contrast route: INTRAVENOUS (IV); COMPARISON: CR XR chest 1V portable [id number] 06/16/2024 2:22 PM RADIATION DOSE METRICS: Total DLP (mGy-cm): 1237.03 FINDINGS: Limitations: Suboptimal image quality due to patient body habitus. Also, the pulmonary arteries are somewhat suboptimally opacified. Pulmonary arteries: No definite evidence of pulmonary emboli to the level of the mid segmental pulmonary arteries. Evaluation of the more distal segmental and subsegmental pulmonary arteries is limited by suboptimal opacification. Aorta: Unremarkable. No aortic aneurysm. No aortic dissection. Lungs: Unremarkable. No consolidation. No masses. Pleural spaces: Unremarkable. No pneumothorax. No pleural effusion. Heart: Unremarkable. No cardiomegaly. No pericardial effusion. Lymph nodes: Unremarkable. No enlarged lymph nodes. Bones/joints: Unremarkable. No acute fracture. Soft tissues: Unremarkable. PROCEDURE INFORMATION: Exam: CT Abdomen And Pelvis With Contrast Exam date and time: 06/19/2024 3:34 PM Age: 23 years old Clinical indication: Abdominal tenderness; Dyspnea; Additional info: Elevated pa pressure, R/O pe TECHNIQUE: Imaging protocol: Computed tomography of the abdomen and pelvis with contrast. Radiation optimization: All CT scans at this facility use at least one of these dose optimization techniques: automated exposure control; mA and/or kV adjustment per patient size (includes targeted exams where dose is matched to clinical indication); or iterative reconstruction. Contrast material: OMNIPAQUE 350; Contrast volume: 100 ml; Contrast route: INTRAVENOUS (IV); COMPARISON: CT abdomen pelvis wo con [id number] 06/16/2024 3:07 PM RADIATION DOSE METRICS: Total DLP (mGy-cm): 1237.03 FINDINGS: Liver: Hepatic steatosis. No focal liver lesion. Gallbladder and biliary ducts: Normal. No calcified stones. No ductal dilation. Pancreas: Normal. No ductal dilation. Spleen: Borderline enlarged. Adrenal glands: Normal. No mass. Kidneys and ureters: Ongoing right perinephric stranding with a mildly striated nephrogram. Mild fat stranding extends along the right paracolic gutter as well as the proximal right ureter. Findings are overall similar to prior. Stomach and bowel: Unremarkable. No obstruction. No mucosal thickening. Appendix: No evidence of appendicitis. Intraperitoneal space: Trace free pelvic fluid. Vasculature: Unremarkable. No abdominal aortic aneurysm. Lymph nodes: Unremarkable. No enlarged lymph nodes. Urinary bladder: Unremarkable as visualized. Reproductive: Unremarkable as visualized. Bones/joints: Unremarkable. No acute fracture. Soft tissues: Tiny subcutaneous gas locules in the right anterior abdominal wall may be from prior injections. CT/CT angio chest w abd pel w con IMPRESSION: 1. Somewhat limited study as above. Within these limitations, no definite evidence of pulmonary emboli. 2. No acute findings in the chest. IMPRESSION: 1. Similar findings suggestive of right pyelonephritis. 2. Trace free pelvic fluid may be physiologic or may be related to presumed pyelonephritis. 3. Hepatic steatosis.
[2024-06-19] MEDS: iohexol 350 mg/mL 500 mL Btl (per mL) IV (15:50)
[2024-06-19] MEDS: scopolamine 1.5 Patch 1 PATCH TRANSDERMA (16:00)
[2024-06-19] MEDS: enoxaparin 40 mg/0.4 mL Syringe SUBCUT (17:54)
[2024-06-19] MEDS: pantoprazole 40 mg SDV IVP (17:54)
[2024-06-19] MEDS: ferrous gluconate 324 mg Tablet PO (17:55)
[2024-06-20] VITALS (10 sets, daily range): BP systolic 109–175; BP diastolic 57–77; PULSE 45–80; RESP 14–20; TEMP 36.1–37.2; O2SAT 95–99; BMI 30.7
[2024-06-20 05:11] LABS: Basophils % 0.3 %; Eosinophils # 0.2 10^3/uL (0.0-0.8); Eosinophils % 2.1 %; Hematocrit 27.1 % (36-47); Lymphocytes # 2.5 10^3/uL (0.8-4.8); Lymphocytes % 35.5 %; Mean Corpuscular Hemoglobin 24.4 pg (27-33); Mean Corpuscular Volume 78.8 fl (85-98); Mean Platelet Volume 10.8 fL (7.4-10.4); Monocytes # 0.4 10^3/uL (0.2-0.9); Monocytes % 5.6 %; Neutrophils # 3.92 10^3/uL (1.8-7.7); Neutrophils % 55.8 %; Nucleated Red Blood Cells % 0 %; Platelet Count 268 10^3/cmm (157-399); Red Blood Count 3.44 10^6/uL (3.85-5.65); Red Cell Distribution Width 16.2 % (12.1-15.1); White Blood Count 7.02 10^3/uL (3.29-11.43)
[2024-06-20] MEDS: dextrose 5%-ns + KCl 20 20 MEQ/1,000 ML BAG 75 MEQ IV ×2 (05:38→22:34)
[2024-06-20] MEDS: metoclopramide 5 mg/mL SDV 2 mL IVP (05:39)
[2024-06-20] MEDS: morphine 4 mg/mL SDV 1 mL 1 MG IVP (05:41)
[2024-06-20] MEDS: meropenem 1,000 mg SDV 1000 MG IVP ×3 (05:43→22:34)
[2024-06-20 05:45] LABS: Alanine Aminotransferase 8 U/L (0-33); Alkaline Phosphatase 66 U/L (35-105); Anion Gap 13.6 (5-19); Aspartate Amino Transferase 10 U/L (0-32); Blood Urea Nitrogen 2 mg/dL (6-20); Calcium 8.3 mg/dL (8.5-10.5); Carbon Dioxide 24 mmol/L (22-29); Chloride 108 mmol/L (98-107); Creatinine Clr Calc Pharmacy 131.4311; Globulin 2.9 g/dL (1.3-4.6); Glucose 95 mg/dL (65-115); Osmolality Calculated 290 mOsm/kg (285-295); Potassium 3.6 mmol/L (3.5-5.1); Sodium 142 mmol/L (136-145); Total Bilirubin 0.2 mg/dL (0.15-1.2); Total Protein 5.9 g/dL (6.6-8.7)
--- NOTE | 2024-06-20 07:10 | P.PN_ITS ---
Subjective 2 Subjective: Patient feels better this morning. No more fever over last 24 hours. She is able to keep food and fluids down since yesterday evening. States nausea is better. Repeat CT and ultrasound without any progression of findings. Medications: Reviewed: Yes Vitals/I&O/Wt Last Vital Signs Temp 98.5 F 06/20/24 04:00 Pulse 80 06/20/24 04:00 Resp 14 06/20/24 05:41 BP 113/76 06/20/24 04:00 Pulse Ox 98 06/20/24 04:00 O2 Del Method Room Air 06/20/24 04:00 06/19/24 06/20/24 06/20/24 22:59 06:59 14:59 Intake Total 222 / 1009.5 999.5 Balance 222 / 1009.5 999. Weight last 48 hrs Weight 83.915 kg Weight 93.667 kg Weight 93.44 kg Physical Exam 2 Narrative: General: No acute distress, AO x3 HEENT: PERRLA, pupils bilaterally equal and reactive, pallors not present Chest: Normal vesicular breath sounds, no added sounds, equal good air entry bilaterally CVS: S1-S2 regular, no murmurs, no tachycardia, no gallops, no rubs Abdomen: Soft, nontender, no organomegaly, bowel sounds present Neuro: No focal deficits, no facial deformity, AO x3, power 5/5 in all limbs Data 06/20/24 04:45 06/20/24 04:45 Micro: Microbiology 06/18/24 21:36 Blood Culture - Preliminary Blood NEGATIVE TO DATE 06/18/24 21:32 Blood Culture - Preliminary Blood NEGATIVE TO DATE 06/16/24 15:10 Urine Culture - Final Urine,Clean Catch Escherichia coli NAME: Shad Khan LOC: [facility] U #: [id number] AGE/SX: 23/F ROOM: 260 R E06/16/[address]: Bright Meyer MD : 2000 BED: 1 D IS: FAX #: STATUS: ADM IN TLOC: Spec #: [id number] Husam: 06/16/24-1509 Status: COMP Req #: [id number] Recd: 06/16/24-[address]: Chapito Morales DO Src: Urine CC [facility]: Ordered: UC Procedure Result Verified Site Urine Culture Final 06/19/241313 Organism 1 Escherichia coli [place] Count >100,000 CFU/ml DAY 2 E coli M.I.C. RX --------- ------ * Amikacin <=16 S * Amoxicillin/Clavulanate 16/8 I * Ampicillin >16 R * Ampicillin/Sulbactam >16/8 R * Aztreonam <=4 S * Cefepime <=8 S * Ceftriaxone <=1 S * Cefuroxime <=4 S * Ciprofloxacin <=1 S * Gentamicin >8 R * Imipenem <=1 S * Levofloxacin <=2 S * Nitrofurantoin <=32 S * Tetracycline <=4 S * Tobramycin <=4 S * Trimethoprim/Sulfamethoxazole >2/38 R * Piperacillin/Tazobactam 32 I Urine Culture Preliminary (changed) 06/18/24-917 Organism 1 Gram Negative Rods [place] Count >100,000 CFU/ml DAY 1, RESULTS TO FOLLOW A&P Assessment and plan (1) Pyelonephritis: 23-year-old lady presenting with chief complaints of fever chills diarrhea dysuria. UA positive CT of the abdomen and pelvis showing right renal enlargement with perinephric stranding Overall findings likely consistent with pyelonephritis. Urine culture showing gram-negative rods now identified as E. coli. Including the susceptibility pattern, isolate appears to be intermediate to Augmentin, susceptible to ceftriaxone and cefepime, intermediate resistance to piperacillin/tazobactam. Though not marked as an ESBL, with the above pattern would be suspicious for the same Continue meropenem for now. She is afebrile last 24 hours, clinically improving since transitioning antibiotics from ceftriaxone to meropenem States that nausea is better today. She is no longer vomiting. Was able to hold down food and fluids yesterday. Blood culture thus far negative to date. CT abdomen repeated yesterday without any progression or signs of hydronephrosis or obstruction. If patient continues to be clinically improving over the next 24 hours, we will plan to transition to oral ciprofloxacin as discharge antibiotics. Total duration of treatment to be 14 days from being afebrile. (2) Persistent fever: Now appears to be afebrile last 24 hours. Will closely monitor. Attestations 2 Medical Necessity Statement*: Per admitting Coding Level of Care Code [facility] Diagnoses Pyelonephritis N12 Persistent fever R50.9
--- NOTE | 2024-06-20 10:35 | ECG_ITS ---
[facility] Test Date: 2024-06-20 Pat Name: Shad Khan Department: Room: 260 Gender: Female [employer]: : 2000 Requested By: Bright Meyer Order Number: [id number] David MD: Steve Contreras M.D. Measurements Intervals [place] Rate: 51 P: 56 TN: 162 QRS: 32 QRSD: 85 T: 24 QT: 462 QTc: 428 Interpretive Statements SINUS BRADYCARDIA WITH OCCASIONAL SUPRAVENTRICULAR PREMATURE COMPLEXES Compared to ECG 06/19/2024 15:29:24 No significant changes Electronically Signed On 06-20-2024 22:54:36 CDT by Steve Contreras M.D. [email or web address]
--- NOTE | 2024-06-20 11:24 | P.PN_ITS ---
Subjective 2 Subjective: No acute events overnight. Patient states she is feeling a lot better. Able to tolerate oral diet. Denies any nausea, vomiting, headache. Has remained afebrile in last 24 hours. Medications: Reviewed: Yes Vitals/I&O/Wt Last Vital Signs Temp 97.4 F L 06/20/24 07:24 Pulse 60 06/20/24 07:24 Resp 17 06/20/24 07:24 BP 127/77 06/20/24 07:24 Pulse Ox 97 06/20/24 07:24 O2 Del Method Room Air 06/20/24 07:24 06/19/24 06/20/24 06/20/24 22:59 06:59 14:59 Intake Total 222 / 1009.5 999. Balance 222 / 1009.5 999 Weight last 48 hrs Weight 83.915 kg Weight 93.667 kg Weight 93.44 kg Physical Exam 2 Narrative: General: No acute distress, AO x3, more comfortable today, HEENT: PERRLA, pupils bilaterally equal and reactive Chest: Normal vesicular breath sounds, no added sounds, equal good air entry bilaterally CVS: S1-S2 regular, no murmurs, no tachycardia, no gallops, no rubs Abdomen: Soft, nontender, no organomegaly, bowel sounds present, right flank pain Neuro: No focal deficits, no facial deformity, AO x3, power 5/5 in all limbs Data 06/20/24 04:45 06/20/24 04:45 Micro: Microbiology 06/18/24 21:36 Blood Culture - Preliminary Blood NEGATIVE TO DATE 06/18/24 21:32 Blood Culture - Preliminary Blood NEGATIVE TO DATE 06/16/24 15:10 Urine Culture - Final Urine,Clean Catch Escherichia coli A&P Assessment and plan (1) Sepsis: SIRS: Tachycardic, Febrile, Leukocytosis Source: UTI/pyelonephritis End organ damage: Not present Lactic acid within normal limits Patient did eceive full 30 mL/kg BW. Continue with D5 NS with 20 mEq of potassium at 75 cc/h. Monitor blood pressures. Keep mean artery pressure 65 mmHg. Follow-up blood culture. Urine culture growing E. coli today. Not ESBL. Appreciate bacterial antigen and procalcitonin. Appreciate ID recommendations. Given persistent fever and symptoms switch to IV meropenem. For now we will continue. (2) Pyelonephritis: Concern for right pelvis enlargement with perinephric stranding on CT abdomen/pelvis. Ultrasound as per ID did not show any hydronephrosis. Given persistent fevers we will recheck CT abdomen pelvis with contrast. Will also help for further evaluation of persistent nausea and vomiting. C. difficile negative. Follow-up blood cultures. (3) Persistent fever: Suspect that this is related to pyelonephritis. Other significant negative workup includes negative respiratory viral panel, negative blood cultures to date, negative urine GC chlamydia NAAT, pending RPR given history of syphilis. History of treated hep C, last viral load from December 2023 was undetectable. Negative C. difficile Tick panel, though lower suspicion right now given normal white blood cell count platelets, no rash, normal LFTs. Negative HIV. Antibiotics as above. (4) Nausea and vomiting: Along with dizziness. Most likely in setting of pyelonephritis. Patient's fever curve is improving, patient has no leukocytosis anymore. As she persistently has nausea and vomiting we will plan to rule out other causes. Will check gastric emptying studies. CT head negative for acute concerns. CT abdomen pelvis with contrast as above. Continue with full liquid diet for now. Encouraged patient to consume more. Continue with Protonix. Patient refusing Carafate. Will stop. Change meclizine to 25 mg 3 times daily as needed. (5) High anion gap metabolic acidosis: In setting of dehydration from nausea and vomiting. Hydration as above. Resolved. (6) Seizure disorder: Gives history of witnessed seizure few months to a year ago. Has not had any seizure recently. For now we will hold off on any medication. Patient should follow-up as an outpatient with neurology. (7) Iron deficiency anemia: Appreciate iron panel. Will start on oral iron supplementation once patient is able to tolerate medications orally. Holding off on iron supplementation given episode of bradycardia. (8) Contact with and (suspected) exposure to covid-19: COVID-19 PCR and respiratory viral panel negative. (9) Bradycardia: Plan Bradycardia: Since 06/18. Could be in setting of Venofer. Rare complication. Continue telemetry. Appreciate EKG. Patient is on high-dose of Zofran and Reglan. Continue to monitor EKG daily to monitor for QTc. Appreciate echocardiogram for a normal EF, mild pulmonary hypertension. Fall precaution. History of hepatitis C: Treated. Most recent viral load negative. History of syphilis: Most recent RPR titer from December is 1: 2. Repeat pending. Negative chlamydia, gonorrhea. Dizziness: CT head negative for acute nighty. Orthostatic negative. Out of bed to chair. Antivert 3 times daily as needed. Full code Full liquid diet Protonix for PUD prophylaxis Lovenox for DVT prophylaxis Plan for the day: Continue with IV meropenem for now. Will plan to continue with current IV antibiotic for at least 1 more day. Appreciate urine culture. Non-ESBL E. coli. Blood cultures so far negative. Continue with Zofran every 8 hours as needed, scopolamine patch. Continue with IV fluids and current diet. Patient able to tolerate orally more. Hold off on oral iron supplementation for now. Tick panel and RPR pending. Continue with telemetry. Heart rate stable. Hold off on oral iron supplementation. Discharge plan: Plan to discharge in next 24 hours back home on oral antibiotics for 5 more days if patient continues to remain afebrile and tolerate orally. Patient's care discussed in detail with patient and father over the phone. All the questions were answered. Attestations 2 Medical Necessity Statement*: Requires further hospitalization for management of pyelonephritis while patient's oral intake is improving Diagnoses Sepsis A41.9 Pyelonephritis N12 Persistent fever R50.9 Nausea and vomiting R11.2 High anion gap metabolic acidosis E87.29 Seizure disorder G40.909 Iron deficiency anemia D50.9 Contact with and (suspected) exposure to covid-19 Z20.822 Bradycardia R00.1
--- NOTE | 2024-06-20 11:28 | NM_ITS ---
WS: [id number] NUCLEAR MEDICINE GASTRIC EMPTYING EXAMINATION HISTORY: Recurring nausea and vomiting COMPARISON: None available. TECHNIQUE: The patient ingested a meal containing 1.1 mCi of Tc 99m sulfur colloid mixed with eggs. The patient was placed in supine position and imaging over the abdomen was performed for a total of 1 20 minutes. Computer acquisition with the region of interest placed over the stomach to evaluate david ryan emptying half-time. Distention of the stomach with radionuclide and food products. At 60 minutes only 11% has emptied fro m the stomach. At 120 minutes only 15% has emptied from the stomach. Very little food product is pass ing through the stomach. NM/[place] [id number] IMPRESSION: Marked delay in gastric emptying at 120 minutes.
[2024-06-20] MEDS: water for injection-sterile 20 ML 240 ML (14:11)
[2024-06-20 15:09] LABS: Lyme AB Screen <0.90 index
[2024-06-20] MEDS: ondansetron 2 mg/ML SDV 2 mL 4 MG IVP (15:58)
[2024-06-20] MEDS: enoxaparin 40 mg/0.4 mL Syringe SUBCUT (18:18)
[2024-06-20] MEDS: pantoprazole 40 mg SDV IVP (18:18)
[2024-06-20 19:39] LABS: RPR w(Moniotor) w/REFL Titer REACTIVE (NON-REACTIVE)
[2024-06-20] MEDS: acetaminophen 325 mg Tablet 650 MG PO (20:50)
[2024-06-21] VITALS (8 sets, daily range): BP systolic 110–145; BP diastolic 65–80; PULSE 47–91; RESP 16–19; TEMP 36.4–36.9; O2SAT 97–99
[2024-06-21] MEDS: meropenem 1,000 mg SDV 1000 MG IVP (05:59)
--- NOTE | 2024-06-21 11:24 | P.PN_ITS ---
Subjective 2 Subjective: Overnight scopolamine patch was removed because of bradycardia after which she became nauseated again. Did have episode of vomiting earlier today morning. Otherwise has remained afebrile. Denies any headache or chest pain. Medications: Reviewed: Yes Vitals/I&O/Wt Last Vital Signs Temp 98.3 F 06/21/24 07:19 Pulse 60 06/21/24 07:19 Resp 16 06/21/24 07:19 BP 123/74 06/21/24 07:19 Pulse Ox 99 06/21/24 07:19 O2 Del Method Room Air 06/21/24 07:19 06/20/24 06/21/24 06/21/24 22:59 06:59 14:59 Intake Total 1240.0 / 1740.0 Balance 1240.0 / 1740.0 Weight last 48 hrs Weight 95.527 kg Weight 83.915 kg Weight 83.915 kg Physical Exam 2 Narrative: General: No acute distress, AO x3, more comfortable today, HEENT: PERRLA, pupils bilaterally equal and reactive Chest: Normal vesicular breath sounds, no added sounds, equal good air entry bilaterally CVS: S1-S2 regular, no murmurs, no tachycardia, no gallops, no rubs Abdomen: Soft, nontender, no organomegaly, bowel sounds present, right flank pain Neuro: No focal deficits, no facial deformity, AO x3, power 5/5 in all limbs Data 06/20/24 04:45 06/20/24 04:45 A&P Assessment and plan (1) Pyelonephritis: Concern for right pelvis enlargement with perinephric stranding on CT abdomen/pelvis. Persistent enlargement on repeat CT scan. Appreciate ID recommendations. Questionable sensitivity patterns to E. coli. For now plan will be to transition over to oral ciprofloxacin 500 mg twice daily. Will plan to continue antibiotics overall for 14 days from last fever which will be on 06/18. If she is not able to tolerate ciprofloxacin will most likely need to transition over to IV or ertapenem 1 g daily. C. difficile negative. Blood culture negative so far. (2) Persistent fever: Last fever on 06/18. Suspect that this is related to pyelonephritis. Other significant negative workup includes negative respiratory viral panel, negative blood cultures to date, negative urine GC chlamydia NAAT, negative RPR given history of syphilis. History of treated hep C, last viral load from December 2023 was undetectable. Negative C. difficile Tick panel, though lower suspicion right now given normal white blood cell count platelets, no rash, normal LFTs. Negative HIV. Antibiotics as above. (3) Delayed gastric emptying: Most likely cause of persistent nausea and vomiting. Reglan 5 mg 3 times daily. If continues to have nausea and vomiting will plan for reattempt with scopolamine patch. Discussed with patient in detail about multiple small meals. (4) Nausea and vomiting: Along with dizziness. Most likely due to gastric emptying getting worse and in setting of pyelonephritis. Treatment as above. Continue with Protonix, Reglan 3 times daily. Will try scopolamine patch as above if needed. (5) Seizure disorder: Gives history of witnessed seizure few months to a year ago. Has not had any seizure recently. For now we will hold off on any medication. Patient should follow-up as an outpatient with neurology. (6) Sepsis: Resolved. Present on admission. SIRS: Tachycardic, Febrile, Leukocytosis Source: UTI/pyelonephritis End organ damage: Not present Lactic acid within normal limits Patient did eceive full 30 mL/kg BW. Continue with D5 NS with 20 mEq of potassium at 75 cc/h. Monitor blood pressures. Keep mean artery pressure 65 mmHg. Follow-up blood culture. Urine culture growing E. coli today. Not ESBL. Appreciate bacterial antigen and procalcitonin. Appreciate ID recommendations. Given persistent fever and symptoms switch to IV meropenem. For now we will continue. (7) Iron deficiency anemia: Appreciate iron panel. Will start on oral iron supplementation once patient is able to tolerate medications orally. Holding off on iron supplementation given episode of bradycardia. (8) Contact with and (suspected) exposure to covid-19: COVID-19 PCR and respiratory viral panel negative. (9) Bradycardia: Mostly sinus. Could be in setting of iron supplementation. Currently on hold. Medical reconciliation done for notable medications. Echocardiogram appreciated. No regional wall motion abnormality. No valvular abnormality. Concerns for mild pulmonary hypertension. PE ruled out. Continue to monitor. Patient could benefit from an event monitor on discharge. Fall precautions. (10) High anion gap metabolic acidosis: In setting of dehydration from nausea and vomiting. Hydration as above. Resolved. Plan History of hepatitis C: Treated. Most recent viral load negative. History of syphilis: Most recent RPR titer from December is 1: 2. Repeat pending. Negative chlamydia, gonorrhea. Dizziness: CT head negative for acute nighty. Orthostatic negative. Out of bed to chair. Antivert 3 times daily as needed. Full code Full liquid diet Protonix for PUD prophylaxis Lovenox for DVT prophylaxis Attestations 2 Medical Necessity Statement*: Requires further hospitalization for management of nausea and vomiting secondary to delayed gastric emptying complicated by pyelonephritis while outpatient antibiotics are set up, bradycardia Diagnoses Pyelonephritis N12 Persistent fever R50.9 Delayed gastric emptying K30 Nausea and vomiting R11.2 Seizure disorder G40.909 Sepsis A41.9 Iron deficiency anemia D50.9 Contact with and (suspected) exposure to covid-19 Z20.822 Bradycardia R00.1 High anion gap metabolic acidosis E87.29
[2024-06-21] MEDS: metoclopramide 5 mg/mL SDV 2 mL IVP ×3 (11:42→21:31)
[2024-06-21] MEDS: ciprofloxacin 500 mg Tablet PO ×2 (12:43→21:32)
--- NOTE | 2024-06-21 17:00 | P.PN_ITS ---
Subjective 2 Subjective: no acute interim events clinically doing better no further fever since 06/18 persistent vomiting +, however better with scopolamine patch Abnormal gastric emyting study which is more likely cause of persistent vomiting than pyelonephritis Medications: Reviewed: Yes Vitals/I&O/Wt Last Vital Signs Temp 98.2 F 06/22/24 07:33 Pulse 61 06/22/24 07:33 Resp 16 06/22/24 07:33 BP 102/60 06/22/24 07:33 Pulse Ox 99 06/22/24 07:33 O2 Del Method Room Air 06/22/24 07:33 06/21/24 06/22/24 06/22/24 22:59 06:59 14:59 Intake Total 440 / 2280 840 / 3120 480 / 480 Balance 440 / 2280 840 / 3120 480 / 480 Weight last 48 hrs Weight 91.626 kg Weight 95.527 kg Physical Exam 2 Narrative: General: No acute distress, AO x3 HEENT: PERRLA, pupils bilaterally equal and reactive, pallors not present Neuro: No focal deficits, no facial deformity, AO x3, power 5/5 in all limbs Data 06/22/24 04:30 06/22/24 04:30 Micro: Microbiology 06/16/24 14:05 Blood Culture - Final Blood NO GROWTH AFTER 5 DAYS 06/16/24 14:15 Blood Culture - Final Blood NO GROWTH AFTER 5 DAYS A&P Assessment and plan (1) Pyelonephritis: 23-year-old lady presenting with chief complaints of fever chills diarrhea dysuria. UA positive CT of the abdomen and pelvis showing right renal enlargement with perinephric stranding Overall findings likely consistent with pyelonephritis. Urine culture showing E. coli. Now afebrile since switching abx to meropenem Last fever on 06/18. clinically better though still nauseous, abnormal gastric emptying study noted ?cause - likely this is the cause of persistent vomiting D/c iv meropenem today. Change to oral Ciprofloxacin 500mg BID and monitor patient to ensure she is able to tolerate oral antibiotics. Total duration of treatment to be 14 days from being afebrile. In case unable to tolerate po abx, will need iv ertapenem as an alernate (2) Persistent fever: now resolved Attestations 2 Medical Necessity Statement*: per admitting Coding Level of Care Code Acute Code for [facility] Diagnoses Pyelonephritis N12 Persistent fever R50.9
[2024-06-21] MEDS: pantoprazole 40 mg SDV IVP (17:58)
[2024-06-21] MEDS: enoxaparin 40 mg/0.4 mL Syringe SUBCUT (17:58)
[2024-06-22] VITALS: BP 121/68; PULSE 72; RESP 17; TEMP 36.7; O2SAT 100
[2024-06-22 04:00] VITALS: BP 110/70; PULSE 64; RESP 17; TEMP 36.4; O2SAT 98
[2024-06-22 04:53] LABS: Basophils % 0.5 %; Eosinophils # 0.1 10^3/uL (0.0-0.8); Eosinophils % 1.3 %; Hematocrit 31.6 % (36-47); Lymphocytes # 2.5 10^3/uL (0.8-4.8); Lymphocytes % 33.6 %; Mean Corpuscular HGB Conc 30.7 g/dL (30-55); Mean Corpuscular Hemoglobin 23.9 pg (27-33); Mean Corpuscular Volume 77.8 fl (85-98); Mean Platelet Volume 10.9 fL (7.4-10.4); Monocytes # 0.3 10^3/uL (0.2-0.9); Monocytes % 3.3 %; Neutrophils # 4.58 10^3/uL (1.8-7.7); Nucleated Red Blood Cells % 0 %; Platelet Count 397 10^3/cmm (157-399); Red Blood Count 4.06 10^6/uL (3.85-5.65); Red Cell Distribution Width 15.9 % (12.1-15.1); White Blood Count 7.51 10^3/uL (3.29-11.43)
[2024-06-22 05:09] LABS: Alanine Aminotransferase 8 U/L (0-33); Albumin Level 3.4 g/dL (3.5-5.2); Alkaline Phosphatase 78 U/L (35-105); Anion Gap 15.5 (5-19); Aspartate Amino Transferase 13 U/L (0-32); Blood Urea Nitrogen 3 mg/dL (6-20); Calcium 8.7 mg/dL (8.5-10.5); Carbon Dioxide 24 mmol/L (22-29); Chloride 104 mmol/L (98-107); Creatinine Clr Calc Pharmacy 160.3154; Globulin 3.4 g/dL (1.3-4.6); Glomerular Filtration Rate 121.8 mL/min (90-130); Glucose 92 mg/dL (65-115); Osmolality Calculated 286 mOsm/kg (285-295); Potassium 3.5 mmol/L (3.5-5.1); Sodium 140 mmol/L (136-145); Total Bilirubin 0.2 mg/dL (0.15-1.2); Total Protein 6.8 g/dL (6.6-8.7)
[2024-06-22 05:14] VITALS: PULSE 50
[2024-06-22 07:33] VITALS: BP 102/60; PULSE 61; RESP 16; TEMP 36.8; O2SAT 99
[2024-06-22 08:29] LABS: Anti-Double Strand DNA AB 1 IU/mL; Jo-1 Antibody <1.0 NEG AI (<1.0 NEG); SS-B/LA IGG <1.0 NEG AI (<1.0 NEG); Scleroderma Ab(Scl-70) Ab <1.0 NEG AI (<1.0 NEG); Ss-A/Ro Igg <1.0 NEG AI (<1.0 NEG)
[2024-06-22] MEDS: ciprofloxacin 500 mg Tablet PO (09:21)
[2024-06-22] MEDS: metoclopramide 5 mg/mL SDV 2 mL IVP (09:21)
--- NOTE | 2024-06-22 11:26 | PM.DCS ---
Discharge Providers Date of Admission: 06/16/24 16:48 Date of Discharge: June 22, 2024 Attending Provider at Admission: Bright Meyer MD Attending Provider at Discharge: Rebekah Interiano MD Diagnoses at Discharge Discharge Diagnosis (1) Pyelonephritis: Status: Acute (2) Persistent fever: Status: Acute Reason for Visit Reason for Visit: nausea/fever/vomitting Hospital Course Hospital Course patient with history of hepatitis C, treated syphilis admitted to the hospital with fever chills dysuria associated abdominal cramping. She was diagnosed with pyelonephritis. She did experience extensive nausea vomiting during hospitalization and required a scopolamine patch and Zofran. She was finally able to tolerate a diet and nausea vomiting resolved and patient no longer needs a scopolamine patch. Blood cultures negative to date. Urine culture positive for gram-negative rods. Patient was seen by infectious disease and has been diagnosed with pyelonephritis. She will be sent home on 14 days of ciprofloxacin 500 twice daily from 06/18 and to follow-up with primary care doctor at discharge. Discussed with ID physician at time of discharge. She also experienced bradycardic episodes during hospitalization and has been set up with a remote monitor at discharge. No true heart block seen. Patient was given oral doses of oxygen during hospitalization and she tolerated it well. Physical Exam Narrative: General: No acute distress, AO x3, more comfortable today, HEENT: PERRLA, pupils bilaterally equal and reactive Chest: Normal vesicular breath sounds, no added sounds, equal good air entry bilaterally CVS: S1-S2 regular, no murmurs, no tachycardia, no gallops, no rubs Abdomen: Soft, nontender, no organomegaly, bowel sounds present, no CVA tenderness Neuro: No focal deficits, no facial deformity, AO x3, power 5/5 in all limbs Discharge Data Studies Completed and Pending Completed Studies During Hospitalization Category Date Time Status CT abdomen pelvis wo con [id number] Stat Cat Scan 06/16/24 13:[address] angio chest w abd pel w con Routine Cat Scan 06/19/24 15:[address] head wo con* [id number] Routine Cat Scan 06/18/24 13:55 Completed XR chest 1V portable [id number] Stat Exams 06/16/24 13:42 [place] [place] [id number] Routine Nuc Med 06/20/24 11:28 Completed CV. echo complete* [id number] Routine Ultrasound 06/19/24 07:02 Completed US renal BI* [id number] Routine Ultrasound 06/19/24 06:51 Completed Pending at discharge Category Date Time Status Blood Culture Stat Lab 06/18/24 21:36 Results [facility] CAIO Profile Routine Lab 06/21/24 12:17 Results Tick Panel AM LABS Lab 06/19/24 03:51 Results Radiology Impressions Chest X-Ray 06/16/24 13:42 Impression: Negative chest. Abdomen/Pelvis CT 06/16/24 13:48 IMPRESSION: 1. Mild RIGHT renal enlargement with perinephric stranding and proximal periureteral stranding. No obstructing stone identified. Findings are most likely due to acute pyelonephritis. 2. Normal appendix. 3. No GI tract obstruction. 4. Hepatic steatosis. Head CT 06/18/24 13:55 IMPRESSION: No large territorial infarct or intracranial bleed. Renal Ultrasound 06/19/24 06:51 IMPRESSION: Unremarkable kidneys and bladder. Chest/Abdomen/Pelvis CT 06/19/24 15:42 IMPRESSION: 1. Somewhat limited study as above. Within these limitations, no definite evidence of pulmonary emboli. 2. No acute findings in the chest. IMPRESSION: 1. Similar findings suggestive of right pyelonephritis. 2. Trace free pelvic fluid may be physiologic or may be related to presumed pyelonephritis. 3. Hepatic steatosis. Gastric Emptying Nuclear Medicine 06/20/24 11:28 IMPRESSION: Marked delay in gastric emptying at 120 minutes. Laboratory Results WBC 7.51 10^3/uL (3.29-11.43) 06/22/24 04:30 RBC 4.06 10^6/uL (3.85-5.65) 06/22/24 04:30 Hgb 9.70 g/dL (11.27-16.99) L 06/22/24 04:30 Hct 31.6 % (36-47) L 06/22/24 04:30 MCV 77.8 fl (85-98) L 06/22/24 04:30 MCH 23.9 pg (27-33) L 06/22/24 04:30 MCHC 30.7 g/dL (30-55) 06/22/24 04:30 RDW 15.9 % (12.1-15.1) H 06/22/24 04:30 Plt Count 397 10^3/cmm (157-399) 06/22/24 04:30 MPV 10.9 fL (7.4-10.4) H 06/22/24 04:30 Neut % (Auto) 61.0 % 06/22/24 04:30 Lymph % (Auto) 33.6 % 06/22/24 04:30 [place] % (Auto) 3.3 % 06/22/24 04:30 Eos % (Auto) 1.3 % 06/22/24 04:30 Baso % (Auto) 0.5 % 06/22/24 04:30 Neut # (Auto) 4.58 10^3/uL (1.8-7.7) 06/22/24 04:30 Lymph # (Auto) 2.5 10^3/uL (0.8-4.8) 06/22/24 04:30 [place] # (Auto) 0.3 10^3/uL (0.2-0.9) 06/22/24 04:30 Eos # (Auto) 0.1 10^3/uL (0.0-0.8) 06/22/24 04:30 Baso # (Auto) 0.0 10^3/uL (0.0-0.1) 06/22/24 04:30 Nucleated RBC % (auto) 0 % 06/22/24 04:30 Nucleated RBCs # 0.0 /100WBC 06/22/24 04:30 D-Dimer 0.90 ug/mLFEU (0-0.59) H 06/19/24 19:04 Sodium 140 mmol/L (136-145) 06/22/24 04:30 Potassium 3.5 mmol/L (3.5-5.1) 06/22/24 04:30 Chloride 104 mmol/L (98-107) 06/22/24 04:30 Carbon Dioxide 24 mmol/L (22-29) 06/22/24 04:30 Anion Gap 15.5 (5-19) 06/22/24 04:30 BUN 3 mg/dL (6-20) L 06/22/24 04:30 Creatinine 0.6 mg/dL (0.5-0.9) 06/22/24 04:30 GFR Calculation 121.8 mL/min (90-130) 06/22/24 04:30 Glucose 92 mg/dL (65-115) 06/22/24 04:30 Calculated Osmolality 286 mOsm/kg (285-295) 06/22/24 04:30 Lactic Acid 1.8 mmol/L (0.5-2.2) 06/16/24 14:15 Calcium 8.7 mg/dL (8.5-10.5) 06/22/24 04:30 Phosphorus 2.0 mg/dL (2.5-4.5) L 06/17/24 04:40 Magnesium 1.9 mg/dL (1.7-2.3) 06/19/24 06:51 Iron 12 ug/dL (37-145) L 06/16/24 14:15 TIBC 351 mcg/dl 06/16/24 14:15 % Saturation 3.4 % (20-50) L 06/16/24 14:15 Unsat Iron Binding 339 ug/dL (112-347) 06/16/24 14:15 Total Bilirubin 0.2 mg/dL (0.15-1.2) 06/22/24 04:30 AST 13 U/L (0-32) 06/22/24 04:30 ALT 8 U/L (0-33) 06/22/24 04:30 Alkaline Phosphatase 78 U/L (35-105) 06/22/24 04:30 Troponin T 5th Gen ng/L < 6 ng/L (0-10) 06/19/24 03:51 Total Protein 6.8 g/dL (6.6-8.7) 06/22/24 04:30 Albumin 3.4 g/dL (3.5-5.2) L 06/22/24 04:30 Globulin 3.4 g/dL (1.3-4.6) 06/22/24 04:30 Lipase 9 U/L (13-60) L 06/16/24 14:15 Vitamin B12 441 pg/mL (232-1245) 06/16/24 14:15 Folate 5.7 ng/mL (4.8-37.3) 06/17/24 04:40 Procalcitonin 1.19 ng/mL (0-0.5) H 06/17/24 04:40 TSH 3.87 uIU/mL (0.27-4.20) 06/19/24 03:51 HCG, Qual Negative (Negative) 06/16/24 14:05 Urine Color Yellow (Yellow) 06/16/24 15:10 Urine Appearance Cloudy (CLEAR) A 06/16/24 15:10 Urine pH 7.0 (5-7) 06/16/24 15:10 Ur Specific [place] 1.011 (1.005-1.030) 06/16/24 15:10 Urine Protein 2+ (Negative) A 06/16/24 15:10 Urine Glucose (UA) Negative (Normal) 06/16/24 15:10 Urine Ketones 2+ (Negative) H 06/16/24 15:10 Urine Blood 1+ (Negative) A 06/16/24 15:10 Urine Nitrate Negative (Negative) 06/16/24 15:10 Urine Bilirubin Negative (Negative) 06/16/24 15:10 Urine Urobilinogen 1.0 mg/dL (Negative) 06/16/24 15:10 Ur Leukocyte Esterase 2+ (Negative) A 06/16/24 15:10 Urine RBC 0-2 /hpf (0-2) 06/16/24 15:10 Urine WBC >100 /hpf (0-5) H 06/16/24 15:10 Ur Squamous Epith Cells 6-10 /hpf (0-5) 06/16/24 15:10 Amorphous Sediment Not Reportable 06/16/24 15:10 Urine Bacteria 2+ /hpf (NONE) H 06/16/24 15:10 Hyaline Casts 1.21 /lpf 06/16/24 15:10 DOMINICK-1 Antibody <1.0 neg AI (<1.0 NEG) 06/21/24 12:17 SS-A/Ro IgG Antibody <1.0 neg AI (<1.0 NEG) 06/21/24 12:17 SS-B/La IgG Antibody <1.0 neg AI (<1.0 NEG) 06/21/24 12:17 Scl-70 Scleroderma Ab <1.0 neg AI (<1.0 NEG) 06/21/24 12:17 Anti-ds DNA IgG Ab 1 IU/mL 06/21/24 12:17 RPR Titer/FTA 1:2 H 06/16/24 14:05 RPR w/Rflx to Titer Reactive (NON-REACTIVE) A 06/16/24 14:05 Adenovirus (PCR) Not detected (NOT DETECT) 06/17/24 10:55 Lyme Ab (Western Blot) <0.90 index 06/19/24 03:51 C. pneumoniae DNA (PCR) Not detected (NOT DETECT) 06/17/24 10:55 C.trachomatis RNA (TMA) Not detected (NOT DETECTED) 06/16/24 15:10 Chlamydia/GC Comment See note 06/16/24 15:10 C. difficile (PCR) Negative (Negative) 06/19/24 03:22 Coronavirus 229E (PCR) Not detected (NOT DETECT) 06/17/24 10:55 HIV 1&2 Ab & HIV 1 Ag Non-reactive (Non-Reactiv) 06/19/24 03:51 HIV 1&2 Antibody Non-reactive (Non-Reactiv) 06/19/24 03:51 Human Metapneumovir PCR Not detected (NOT DETECT) 06/17/24 10:55 Influenza A (H1) PCR Not detected (NOT DETECT) 06/17/24 10:55 Influ A (H1/09) PCR Not detected (NOT DETECT) 06/17/24 10:55 Influenza A (H3) PCR Not detected (NOT DETECT) 06/17/24 10:55 Influenza Type A (PCR) Not detected (NOT DETECT) 06/17/24 10:55 Influenza Type B (PCR) Not detected (NOT DETECT) 06/17/24 10:55 M. pneumoniae (PCR) Not detected (NOT DETECT) 06/17/24 10:55 N.gonorrhoeae RNA (TMA) Not detected (NOT DETECTED) 06/16/24 15:10 Parainfluenza 1 (PCR) Not detected (NOT DETECT) 06/17/24 10:55 Parainfluenza 2 (PCR) Not detected (NOT DETECT) 06/17/24 10:55 Parainfluenza 3 (PCR) Not detected (NOT DETECT) 06/17/24 10:55 Parainfluenza 4 (PCR) Not detected (NOT DETECT) 06/17/24 10:55 RSV Type A (PCR) Not detected (NOT DETECT) 06/17/24 10:55 RSV Type B (PCR) Not detected (NOT DETECT) 06/17/24 10:55 Entero/Rhino (PCR) Not detected (NOT DETECT) 06/17/24 10:55 SARS-CoV-2 (PCR) Not detected (NOT DETECT) 06/17/24 10:55 T. vaginalis Amp RNA Not detected (NOT DETECTED) 06/16/24 15:10 Vitals Last Vital Signs Temp 98.2 F 06/22/24 07:33 Pulse 61 06/22/24 07:33 Resp 16 06/22/24 07:33 BP 102/60 06/22/24 07:33 Pulse Ox 99 06/22/24 07:33 O2 Del Method Room Air 06/22/24 07:33 Discharge Plan Discharge Patient Disposition: Home Condition: Stable Prescriptions: New ondansetron 4 mg tablet,disintegrating 4 mg PO Q8H PRN (Reason: nausea and vomiting) 3 Days Qty: 9 0RF ciprofloxacin HCl 500 mg Tablet 500 mg PO BID@0900,2100 11 Days Qty: 22 0RF Continued No Known Home Medications Discharge Orders: Discharge Order (Routine); Ordered 06/22/24 Ordered By: Rebekah Interiano Other Ambulatory Orders: MCT/Event Monitor 21 Days (Routine) Timeframe: 1 Day Facility: [facility] - Location: Radiology Ordered By: Rebekah Interiano Referrals: Brett Oglesby NP [Nurse Practitioner] - 06/29/24 12:00 pm Flex Laurent M.D [Physician] - 3 weeks (We have notified your physician's clinic of the need for a follow-up appointment to be scheduled. If you have not heard from them within the next 2 business days, please call them directly. ) Discharge Diet: Regular Discharge Activity: Resume usual activity Patient Instructions: Opioid Safety Discharge Attestations Time Spent in Discharge Care*: greater than 30 min Quality Metrics Clinical Quality Measures [ No reported AMI, CVA or VTE this stay] Coding Level of Care Code 43372 Total time (in minutes) for Discharge: 35 Diagnoses Pyelonephritis N12 Persistent fever R50.9
[2024-06-22 12:00] VITALS: BP 119/72; PULSE 72; RESP 17; TEMP 36.6; O2SAT 98
[2024-06-22 13:27] VITALS: BP 119/72; PULSE 72; RESP 17; TEMP 36.6; O2SAT 98
[2024-06-23 16:35] LABS: RMSF IGG NOT DETECTED; RMSF IGM NOT DETECTED
[2024-06-24 17:08] LABS: E. Chaffeensis AB IGG <1:64; E. Chaffeensis AB IGM 1:20
--- NOTE | 2024-06-28 22:56 | P.MISC_ITS ---
Miscellaneous Note Purpose of Documentation: Post discharge patient's ehrlichia IgM returned + at equivocal 1:20 ? signi ficance. Prescribed doxycycline 100mg BID x 5 days for this reason. Recommended to follow up with primary care physician.
== END 2024-06-22 13:27 | disposition home or self-care (01) | DRG 872 ==
LOC: ER 16:08 → MEDSURG 16:48
PROVIDERS: Student in an Organized Health Care Education/Training Program; Admitting Provider Student in an Organized Health Care Education/Training Program; Emergency Provider Family Medicine; PCP Nurse Practitioner Family; Visit Provider Internal Medicine
DX: A41.9 Sepsis, unspecified organism (principal); N12 Tubulo-interstitial nephritis, not specified as acute or chronic; E87.20 Acidosis, unspecified; B96.20 Unspecified Escherichia coli [E. coli] as the cause of diseases classified elsewhere; Z87.440 Personal history of urinary (tract) infections; Z86.19 Personal history of other infectious and parasitic diseases; G40.909 Epilepsy, unspecified, not intractable, without status epilepticus; D50.9 Iron deficiency anemia, unspecified; Z20.822 Contact with and (suspected) exposure to COVID-19; E66.9 Obesity, unspecified; Z68.35 Body mass index [BMI] 35.0-35.9, adult; E86.0 Dehydration; R00.1 Bradycardia, unspecified; K30 Functional dyspepsia
CPT/HCPCS: 36415; 70450; 71045; 71275; 74176; 74177; 76770; 78264; 80053; 81003; 81015; 82607; 82746; 83540; 83550; 83605; 83690; 83735; 84100; 84145; 84443; 84484; 84703; 85025; 85378; 86225; 86235; 86403; 86592; 86618; 86666; 86757; 87040; 87077; 87086; 87186; 87486; 87491; 87493; 87581; 87591; 87633; 87635; 87806; 93005; 93306; 94664; 96361; 96372; 96374; 96375; 99285; A9541; J0131; J0696; J1650; J1756; J2185; J2270; J2405; J2470; J2765; J7030; J8597; Q9967

== ENCOUNTER 2025-05-28 00:39 | Emergency (ER) | payer SELFPAY ==
[2025-05-28 00:59] VITALS: BP 123/69; PULSE 85; RESP 17; TEMP 37.1; O2SAT 98; BMI 35.7
[2025-05-28 02:04] LABS: Hematocrit 33.9 % (36-47); Hemoglobin 11.10 g/dL (11.27-16.99); Mean Corpuscular HGB Conc 32.7 g/dL (30-55); Mean Corpuscular Hemoglobin 28.3 pg (27-33); Mean Corpuscular Volume 86.5 fl (85-98); Nucleated Red Blood Cells % 0 %; Platelet Count 232 10^3/cmm (157-399); Red Blood Count 3.92 10^6/uL (3.85-5.65); White Blood Count 10.07 10^3/uL (3.29-11.43)
[2025-05-28 02:35] LABS: Anion Gap 16.6 (5-19); Blood Urea Nitrogen 6 mg/dL (6-20); Calcium 9.0 mg/dL (8.5-10.5); Carbon Dioxide 18 mmol/L (22-29); Chloride 101 mmol/L (98-107); Creatinine Clr Calc Pharmacy 246.3171; Glucose 95 mg/dL (65-115); Osmolality Calculated 271 mOsm/kg (285-295); Potassium 3.6 mmol/L (3.5-5.1); Sodium 132 mmol/L (136-145)
[2025-05-28 03:02] VITALS: BP 115/60; PULSE 67; RESP 15; O2SAT 100
--- NOTE | 2025-05-28 03:04 | USR_ITS ---
PROCEDURE INFORMATION: Exam: US First Trimester, Transabdominal and US , Transvaginal Exam date and time: 05/28/2025 5:33 AM Age: 24 years old Clinical indication: Lmp or gestational age (in weeks): 12w0d by ultrasound; Antepartum complications; Bleeding; ; Prior surgery; Surgery date: 6+ months; Surgery type: Unsure of dates- 2 c sections; Additional info: of unknown location, vaginal bleeding in , no previous ultrasounds in this , hcg 29,000. LABS AND CLINICAL REPORTS: Last menstrual period start date: 02/23/2025 Gestational age (Established): 13 w 3 d Estimated due date (Established): 11/30/2025 TECHNIQUE: Imaging protocol: Real-time transabdominal obstetrical ultrasound of the maternal pelvis and a first trimester , less than 14 weeks 0 days, with image documentation. Transvaginal imaging was used for better evaluation of the fetus, adnexa, and/or cervix. COMPARISON: No relevant prior studies available. FINDINGS: Single living intrauterine fetus. Meno rump length of 5.4 cm estimates age at 12 weeks, 0 days. heart activity documented by the technologist, 165 bpm. 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 The fetus appears to lie in the right uterine horn. Small complex fluid collection adjacent to the gestational sac, probably representing subchorionic hematoma, measuring 52 x 27 x 49 mm. Additional slightly complex fluid is present in the left uterine horn. This could represent additional intrauterine blood/subchorionic hematoma. Amniotic fluid appears adequate for gestation. The placenta is forming posteriorly. No placenta previa or other definite/visible placental abnormality on the provided images. Cervical length evaluated with endovaginal scanning measures 3.4 cm. No definite cervical canal dilation or fluid on the provided images. No visible/significant free pelvic fluid. The right ovary measures 27 x 19 x 21 mm, estimated volume 5.5 cc. The right ovary appears essentially unremarkable, containing blood flow. The left ovary was not visualized at this time. The urinary bladder was not completely evaluated/imaged at this time. Endovaginal scanning provided better visualization/evaluation of the gestational sac and contents, adnexal regions, and cervical length, as discussed above. US/US OB <=14 wk fetus w transvag IMPRESSION: 1. Single living intrauterine fetus, 12 weeks, 0 days estimated age. 2. Apparent bicornuate uterus, with fetus in the right uterine horn. 3. The placenta is forming posteriorly. No placenta previa or other definite/visible placental abnormality on the provided images. 4. Cervical length measures 3.4 cm. 5. Suspected subchorionic hematomas, see above details/discussion 6. Other details discussed above.
[2025-05-28 04:00] VITALS: BP 125/66; PULSE 61; RESP 15; O2SAT 100
[2025-05-28 05:00] VITALS: BP 116/56; PULSE 67; RESP 16; O2SAT 98
--- NOTE | 2025-05-28 05:29 | ED_ITS ---
HPI - 2 General: Chief complaint: Vaginal Bleeding Stated complaint: bleeding at 12 wks preg Time Seen by Provider: 05/28/25 02:46 History of Present Illness: HPI: at unknown gestational age but last menstrual cycle was over 2 months ago presenting emergency department for vaginal bleeding. Patient describes a mild bleeding is similar to a menstrual cycle. States was feeling a toilet bowl this evening when she was time to use the restroom. Had some cramping throughout the day but no bleeding until this evening when she was using the restroom. States unknown blood type. REVIEW OF SYSTEMS: 10 systems reviewed and otherwise unrema rkable except for those noted in HPI. PHYSCIAL EXAM: Triage vital signs reviewed Gen: A&O NAD HEENT: NCAT, EOMI, not icteric. External ears normal. No rhinorrhea. Moist mucous membranes. Neck: Supple, full range of motion, no observable masses, No meningeal sign. Lungs: No Respiratory distress. CV: RRR, no edema. Abdomen: Soft, nondistended, No rebound tenderness. MSK: No joint swelling, no redness. Skin: No rashes, petechiae, lesions. Normal color per patient. Neuro: Normal Gait, Grossly intact. Psych: Appropriate for situation. PROCEDURES: N/A Related Data Allergies Allergy/AdvReac Type Severity Reaction Status Date / Time diphenhydramine (From Allergy ADR-Cramping Verified 01/19/24 13:39 Benadryl) of the Muscles PFSH ED 2 PFSH: Medical History (Updated 05/28/25 @ 05:32 by Elie Fitzgerald MD) Uterus didelphus in Nausea and vomiting during Seizure disorder Hepatitis C antibody positive in blood Syphilis Positive RPR test Supervision of other normal delivery delivered Surgical History (Updated 06/23/24 @ 00:01 by VICKI Mclaughlin) History of delivery Family History Denies family history of Colon cancer Ovarian cancer Diabetes Heart disease Hyperlipidemia Breast cancer Hypertension Uterine cancer Thyroid disease Stroke Course 2 Vital Signs: Vital signs: Vital Signs Temperature 98.7 F 05/28/25 00:59 Pulse Rate 85 05/28/25 00:59 Respiratory Rate 17 05/28/25 00:59 Blood Pressure 123/69 05/28/25 00:59 Pulse Oximetry 98 05/28/25 00:59 Oxygen Delivery Me thod Room Air 05/28/25 00:59 MDM - OB/Uterine Contractions Medical Decision Making MEDICAL DECISION MAKING: Differential diagnoses considered but not limited to: Threatened miscarriage, completed miscarriage, subchorionic hemorrhage, placenta previa, placenta accreta, of unknown location. Vitals nonactionable. Given history, examination, and pretest risk factors, and no previous ultrasonography of this , obtaining ultrasonography in the department for risks to mother and fetus. Ultrasound called into evaluate the patient. hCG above detectable threshold. Rh+ blood type. Patient's care signed out to the oncoming physician pending repeat evaluation, ultrasonography of a suspect first trimester of unknown location. Signout time: 0550 Pending: Ultrasound first trimester Patient educated about reasons to return to the emergency department including signs of ongoing or changing condition. Advised to make an appointment with primary care or to establish care with a primary care provider to review all results from this encounter. This note was written with assistance of dictation software. Contact author for any clarification of typos. Elie Fitzgerald MD DISPO: Pending Elie Fitzgerald MD Staff physician, [facility] [place] [phone] Lab Data 05/28/25 01:50 05/28/25 01:50 Laboratory Results WBC 10.07 10^3/uL (3.29-11.43) 05/28/25 01:50 RBC 3.92 10^6/uL (3.85-5.65) 05/28/25 01:50 Hgb 11.10 g/dL (11.27-16.99) L 05/28/25 01:50 Hct 33.9 % (36-47) L 05/28/25 01:50 MCV 86.5 fl (85-98) 05/28/25 01:50 MCH 28.3 pg (27-33) 05/28/25 01:50 MCHC 32.7 g/dL (30-55) 05/28/25 01:50 RDW 14.8 % (12.1-15.1) 05/28/25 01:50 Plt Count 232 10^3/cmm (157-399) 05/28/25 01:50 MPV 11.1 fL (7.4-10.4) H 05/28/25 01:50 Neut % (Auto) 76.9 % 05/28/25 01:50 Lymph % (Auto) 18.4 % 05/28/25 01:50 [place] % (Auto) 3.4 % 05/28/25 01:50 Eos % (Auto) 0.7 % 05/28/25 01:50 Baso % (Auto) 0.2 % 05/28/25 01:50 Neut # (Auto) 7.75 10^3/uL (1.8-7.7) H 05/28/25 01:50 Lymph # (Auto) 1.9 10^3/uL (0.8-4.8) 05/28/25 01:50 [place] # (Auto) 0.3 10^3/uL (0.2-0.9) 05/28/25 01:50 Eos # (Auto) 0.1 10^3/uL (0.0-0.8) 05/28/25 01:50 Baso # (Auto) 0.0 10^3/uL (0.0-0.1) 05/28/25 01:50 Nucleated RBC % (auto) 0 % 05/28/25 01:50 Nucleated RBCs # 0.0 /100WBC 05/28/25 01:50 Sodium 132 mmol/L (136-145) L 05/28/25 01:50 Potassium 3.6 mmol/L (3.5-5.1) 05/28/25 01:50 Chloride 101 mmol/L (98-107) 05/28/25 01:50 Carbon Dioxide 18 mmol/L (22-29) L 05/28/25 01:50 Anion Gap 16.6 (5-19) 05/28/25 01:50 BUN 6 mg/dL (6-20) 05/28/25 01:50 Creatinine 0.4 mg/dL (0.5-0.9) L 05/28/25 01:50 GFR Calculation 192.9 mL/min (90-130) H 05/28/25 01:50 Glucose 95 mg/dL (65-115) 05/28/25 01:50 Calculated Osmolality 271 mOsm/kg (285-295) L 05/28/25 01:50 Calcium 9.0 mg/dL (8.5-10.5) 05/28/25 01:50 Ser , Semi-Qnt 50094.00 mIU/mL 05/28/25 01:50 Blood Type O Positive 05/28/25 01:50 Rho(D) Type Rh positive 05/28/25 01:50 All radiology interpretation(s) finalized by discharge Discharge Plan Discharge Clinical Impression: Threatened Condition: Stable Referrals: Brett Oglesby MANAGER ENT [Primary Care Provider, Nurse Practitioner] Discharge Diet: Usual diet Patient Instructions: Opioid Safety, Pain Management, Patient Portal & Nehemias Instructions Activity Restrictions/Additional Instructions: It has been a pleasure caring for you in the emergency department. Please ensure that you follow-up with your primary care physician for review of all data obtained during this encounter including any incidental findings and laboratory values. Keep in mind that if your condition worsens in any way, I strongly recommend that you return to the emergency department for repeat evaluation immediately. Print Language: Omani Coding Level of Care Code ED [employer] Founder for Jakob Wilkinson
[2025-05-28 06:00] VITALS: BP 125/73; PULSE 73; RESP 17; O2SAT 100
[2025-05-28 06:13] LABS: Add Urine Microscopic? YES; Glucose Urine UA Norm (Normal); Nitrate Urine Negative (Negative); Specific Gravity, Urine 1.005 (1.005-1.030)
[2025-05-28 07:02] VITALS: BP 125/70; PULSE 73; RESP 15; O2SAT 99
== END 2025-05-28 06:54 | disposition home or self-care (01) ==
PROVIDERS: General Practice; Emergency Provider Emergency Medicine; PCP Nurse Practitioner Family
DX: O20.0 Threatened abortion (principal); Z3A.12 12 weeks gestation of pregnancy
CPT/HCPCS: 36415; 76801; 76817; 80048; 81001; 84702; 85025; 86900; 87077; 87086; 87186; 99284

== ENCOUNTER 2025-08-20 10:23 | Outpatient (CLI) | payer SELFPAY ==
[2025-08-20 10:28] VITALS: BMI 35.2
[2025-08-20 10:41] VITALS: BP 115/64; PULSE 80
[2025-08-20 10:54] LABS: Glucose Urine UA Negative (Normal); Nitrate Urine Positive (Negative); Specific Gravity, Urine 1.016 (1.005-1.030)
[2025-08-20 11:01] VITALS: BP 116/61; PULSE 78
[2025-08-20 11:09] VITALS: BP 116/61; PULSE 78; RESP 17; TEMP 36.1; O2SAT 98
[2025-08-20 11:10] LABS: UA Manual Slide Review YES; UA Slide Review UA Slide Review Perf
== END 2025-08-20 11:09 | disposition home or self-care (01) ==
LOC: OPOB 10:23 → OBGYN 10:24
PROVIDERS: PCP Nurse Practitioner Family; Visit Provider Family Medicine
DX: O26.899 Other specified pregnancy related conditions, unspecified trimester (principal); Z3A.00 Weeks of gestation of pregnancy not specified; R10.9 Unspecified abdominal pain
CPT/HCPCS: 81001; 87086; 99211